=== PATIENT | male | born 1960 | race Caucasian/White ===

== ENCOUNTER 2016-11-27 10:08 | Inpatient (IN) | payer OTHER, MEDICARE ==
[~2016-11-27] VITALS: Ht 185.4 cm; Wt 118.0 kg
[2016-11-27] VITALS (12 sets, daily range): BP systolic 110–145; BP diastolic 82–95; PULSE 86–99; RESP 15–20; TEMP 97.5–98.3; O2SAT 96–98
--- NOTE | 2016-11-27 10:38 | PD ---
HPI Chief Complaint: Medical Clearance Time Seen by Provider: 10:27 Travel History International Travel<30 days: No Contact w/Intl Traveler<30days: No Traveled to known affect area: No History of Present Illness HPI 56-year-old male arrives to the ER at the request of Dr. Solitario, of podiatry, who intends to perform a hardware removal surgery tomorrow from the right foot. The patient is currently receiving vancomycin twice daily via a PICC line. Patient underwent operative repair for fracture about 8 years ago with hardware again placed 2 years ago. Evidently an abscess formed requiring vancomycin. He denies fever lately. He has routine wound shelter. PFSH Social History Tobacco Use: No Allergies-Medications (Allergen,Severity, Reaction): Coded Allergies: No Known Allergies (Unverified , 11/27/16) Reported Meds & Prescriptions Reported Meds & Active Scripts Active Reported Bactrim DS (Sulfamethoxazole-Trimethoprim) 800-160 Mg Tab 1 Tab PO BID Hydrocodone-Acetaminophen 10-325 mg Tab 1 Tab PO Q4H PRN Coq-10 (Coenzyme Q10 (Ubidecarenone)) 400 Mg Cap 200 Mg PO DAILY Multiple Vitamin 1 Tab 1 Tab PO DAILY Vitamin E 100 Unit Tab 400 Units PO DAILY Vitamin D3 (Cholecalciferol) 1,000 Unit Cap 400 Units PO DAILY Vitamin A (Vitamin A Palmitate) 10,000 Unit Capsule 1 Tab PO DAILY Vancomycin Inj (Vancomycin HCl) 1 Gram Inj 1,250 Mg IV Q12HR Iosat (Antidote) (Potassium Iodide (Antidote)) 130 Mg Tab 0.5 Mg PO DAILY Cialis (Tadalafil) 5 Mg Tab 5 Mg PO DAILY Do not exceed 1 dose/day. [place] Thyroid (Thyroid) 30 Mg Tab 30 Mg PO DAILY Levothyroxine (Levothyroxine Sodium) 50 Mcg Tab 50 Mcg PO DAILY Anastrozole 1 Mg Tab 0.5 Mg PO DAILY Furosemide 40 Mg Tab 40 Mg PO BID Lisinopril 5 Mg Tab 5 Mg PO DAILY Carvedilol 3.125 Mg Tab 3.125 Mg PO BID Eliquis (Apixaban) 5 Mg Tab 5 Mg PO BID Review of Systems Except as stated in HPI: all other systems reviewed are Neg General / Constitutional: No: Fever Physical Exam Narrative GENERAL: 56-year-old male pleasant well-nourished well-developed SKIN: Warm and dry. HEAD: Atraumatic. Normocephalic. EYES: Pupils equal and round. No scleral icterus. No injection or drainage. ENT: No nasal bleeding or discharge. Mucous membranes pink and moist. NECK: Trachea midline. No JVD. CARDIOVASCULAR: Regular rate and rhythm. RESPIRATORY: No accessory muscle use. Clear to auscultation. Breath sounds equal bilaterally. GASTROINTESTINAL: Abdomen soft, non-tender, nondistended. Hepatic and splenic margins not palpable. MUSCULOSKELETAL: Extremities without clubbing, cyanosis, or edema. No obvious deformities. Left foot with an open wound approximately 1 cm in widest diameter along the medial margin at the tarsal metatarsal articulation without purulent discharge or adjacent cellulitis. 2+ dorsalis pedis bilaterally. NEUROLOGICAL: Awake and alert. No obvious cranial nerve deficits. Motor grossly within normal limits. Five out of 5 muscle strength in the arms and legs. Normal speech. PSYCHIATRIC: Appropriate mood and affect; insight and judgment normal. Data Data Last Documented VS Vital Signs Date Time Temp Pulse Resp B/P (MAP) Pulse Ox O2 Delivery O2 Flow Rate FiO2 11/27/16 10:09 98.2 95 15 143/92 [phone]) 96 Vital signs reviewed Orders Orders Iv Access Insert/Monitor (11/27/16 10:27) Ecg Monitoring (11/27/16 10:27) Oximetry (11/27/16 10:27) Sodium Chloride 0.9% Flush (Ns Flush) (11/27/16 10:30) Basic Metabolic Panel (Bmp) (11/27/16 10:38) Complete Blood Count With Diff (11/27/16 10:38) Wound Culture And Gram Stain (11/27/16 10:38) Labs Laboratory Tests Test 11/27/16 10:55 White Blood Count 8.3 TH/MM3 Red Blood Count 4.26 MIL/MM3 Hemoglobin 13.7 GM/DL Hematocrit 41.0 % Mean Corpuscular Volume 96.2 FL Mean Corpuscular Hemoglobin 32.1 PG Mean Corpuscular Hemoglobin Concent 33.4 % Red Cell Distribution Width 19.6 % Platelet Count 199 TH/MM3 Mean Platelet Volume 7.6 FL Neutrophils (%) (Auto) 75.0 % Lymphocytes (%) (Auto) 13.6 % Monocytes (%) (Auto) 10.0 % Eosinophils (%) (Auto) 0.7 % Basophils (%) (Auto) 0.7 % Neutrophils # (Auto) 6.2 TH/MM3 Lymphocytes # (Auto) 1.1 TH/MM3 Monocytes # (Auto) 0.8 TH/MM3 Eosinophils # (Auto) 0.1 TH/MM3 Basophils # (Auto) 0.1 TH/MM3 CBC Comment DIFF FINAL Differential Comment Blood Urea Nitrogen 11 MG/DL Creatinine 1.19 MG/DL Random Glucose 75 MG/DL Calcium Level 8.8 MG/DL Sodium Level 133 MEQ/L Potassium Level 3.5 MEQ/L Chloride Level 95 MEQ/L Carbon Dioxide Level 28.2 MEQ/L Anion Gap 10 MEQ/L Estimat Glomerular Filtration Rate 63 ML/MIN MDM Medical Decision Making Medical Screen Exam Complete: Yes Emergency Medical Condition: Yes Differential Diagnosis cellulitis, osteomyelitis, infection of hardware, abscess, sepsis Narrative Course CBC & BMP Diagram 11/27/16 10:55 Calcium Level 8.8 d/w Dr Leo of podiatry who confirms plan for surgery tomorrow d/w Dr Solitario who reports plan for surgery tomorrow at 5:00pm, NPO p breakfast ; pt has hx CHF, cardiology consult recommended; continue BID Vanco; pt is on Eliquis for a-fib Diagnosis Primary Impression: Infected hardware in left lower extremity Qualified Codes: T84.7XXS - Infection and inflammatory reaction due to other internal orthopedic prosthetic devices, implants and grafts, sequela Admitting Information Admitting Physician Requests: Observation Ashok Rangel MD Nov 27, 2016 10:38
[2016-11-27] MEDS ORDERED: ANAS1TAB PO (11:20)
[2016-11-27] MEDS ORDERED: COEN400C PO (11:20)
[2016-11-27] MEDS ORDERED: VITA100T65 PO (11:20)
[2016-11-27] MEDS ORDERED: ARMO30TA PO (11:20)
[2016-11-27] MEDS ORDERED: VITA100036 PO (11:20)
[2016-11-27] MEDS ORDERED: FURO40TA PO (11:20)
[2016-11-27] MEDS ORDERED: VITA1CAP7 PO (11:20)
[2016-11-27] MEDS ORDERED: LISI-519 PO (11:20)
[2016-11-27] MEDS ORDERED: [UNRECOGNIZED DRUG - CODE] PO (11:20)
[2016-11-27] MEDS ORDERED: APIX5TAB PO (11:20)
[2016-11-27] MEDS ORDERED: CARV3.12 PO (11:20)
[2016-11-27] MEDS ORDERED: VANC1000P IV (11:20)
[2016-11-27] MEDS ORDERED: MULTTAB67 PO (11:20)
[2016-11-27] MEDS ORDERED: CIAL5TAB PO (11:20)
[2016-11-27] MEDS ORDERED: LEVO50TA4 PO (11:20)
[2016-11-27] MEDS ORDERED: HYDR-3583 PO (11:21)
[2016-11-27] MEDS ORDERED: BACT800T5 PO (11:21)
[2016-11-27 11:24] LABS: AUTOMATED NEUTROPHIL # 6.2 TH/MM3 (1.8-7.7); BASOPHIL # 0.1 TH/MM3 (0-0.2); BASOPHIL % 0.7 % (0.0-2.0); EOSINOPHIL # 0.1 TH/MM3 (0-0.4); EOSINOPHIL % 0.7 % (0.0-4.0); HEMO FLAGS DIFF FINAL; LYMPH % 13.6 % (9.0-44.0); LYMPHOCYTE # 1.1 TH/MM3 (1.0-4.8); MEAN CELL VOLUME 96.2 FL (80.0-100.0); MEAN CORPUSCULAR HEMOGLOBIN 32.1 PG (27.0-34.0); MEAN CORPUSCULAR HGB CONC 33.4 % (32.0-36.0); PLATELET COUNT 199 TH/MM3 (150-450); RED BLOOD COUNT 4.26 MIL/MM3 (4.50-5.90); RED CELL DISTRIBUTION WIDTH 19.6 % (11.6-17.2); WHITE BLOOD COUNT 8.3 TH/MM3 (4.0-11.0)
[2016-11-27 11:41] LABS: BICARBONATE 28.2 MEQ/L (21.0-32.0); POTASSIUM 3.5 MEQ/L (3.5-5.1)
[2016-11-27] MEDS ORDERED: ONDANSETRON HCL 4 MG/2 ML VIAL IVP PRN (12:30)
[2016-11-27] MEDS ORDERED: LACTULOSE SYRUP 20 GM/30 ML CUP PO PRN (12:30)
[2016-11-27] MEDS ORDERED: BISACODYL 10 MG SUPP RECTAL PRN (12:30)
[2016-11-27] MEDS ORDERED: ACETAMINOPHEN 325 MG TAB PO PRN ×2 (12:30→14:30)
[2016-11-27] MEDS ORDERED: SENNOSIDES 8.6 MG TAB PO PRN (12:30)
--- NOTE | 2016-11-27 13:17 | HHI.HP ---
HPI Service Family Medicine Team A Dr. Gallardo, attending Primary Care Physician [facility] Admission Diagnosis Diagnoses: International Travel<30 Days: No Contact w/Intl Traveler<30days: No History of Present Illness Patient is a 56 year old male with history of systolic HF, EF 20-25 with defibrillator vest, who presents because he was sent by his element setter for surgical removal of right foot hardware. He did not bring any records with him but says he was sent by Dr. Solitario for surgery tomorrow. Patient states his issue with the right foot started after construction accident in 2007. He had no issues with the hardware which he reports to be extensive involving the forefoot, medial foot, and ankle. He is noted to have had osteomyelitis in [place] in May 2014, with hardware removed at that time. After controlling infection, hardware was replaced in October 2014. Repair included bone graft, removal of old hardware, and delayed replacement of new hardware. Patient did have a hospitalization in May 2016: new infection of the foot, lower extremity edema, cardiac issues at that time, diagnosed with new-onset CHF per his report. Now sees Dr. Whittaker through [facility]. Last EF 20-25% 3 months ago. He has seen another doctor for AICD placement, but there is suspicion that infection may be contributing to low EF. Recently (within 1-2 months), he noticed increased pain in the right foot. He noticed at that time redness and swelling, was sent to [facility] and he had debridement by Dr. Solitario. The review included sending one of the screws for culture and infection, per patient was MRSA, was noted. He was diagnosed then with recurrent osteomyelitis and has been on IV vancomycin BID via home health infusions. He notes that he ran out of vancomycin as of this morning. Symptom-montaño, patient states he is at a baseline. He is ambulating without balance issues and only notes some pain with ambulation. He denies any systemic signs of fever. He does endorse lower extremity edema which is mildly increased above his baseline; his edema has been a problem since his hospitalization in May 2016, and he did take his Lasix 40 mg doses morning for this. He denies respiratory symptoms today and states he does not usually have respiratory symptoms. (Trista Martinez MD R2) Review of Systems Constitutional: DENIES: Fever, Weight gain, Weight loss, Chills, Change in appetite Eyes: DENIES: Blurred vision, Diplopia, Eye pain, Photosensitivity Ears, nose, mouth, throat: DENIES: Tinnitus, Hearing loss, Vertigo, Oral lesions, Throat pain, Toothache Respiratory: DENIES: Cough, Hemoptysis, Sputum production, Shortness of breath Cardiovascular: COMPLAINS OF: Lower Extremity Edema, Claudication (moreso with swelling), DENIES: Chest pain, Palpitations, Syncope, Orthopnea Gastrointestinal: DENIES: Abdominal pain, Black stools, Bloody stools, Constipation, Nausea, Vomiting, Difficulty Swallowing Genitourinary: DENIES: Urinary frequency, Urgency, Hematuria, Dysuria, Nocturia Musculoskeletal: COMPLAINS OF: Joint pain (OA, right foot), Stiffness, Back pain (chronic ), Neck pain (chronic), DENIES: Muscle aches Integumentary: DENIES: Pruritus, Rash Hematologic/lymphatic: COMPLAINS OF: Bruising, DENIES: Lymphadenopathy Neurologic: DENIES: Abnormal gait, Headache, Poor Balance Psychiatric: DENIES: Anxiety, Depression (Trista Martinez MD R2) Past Family Social History Past Medical History Atrial fibrillation on Eliquis CHF systolic Right foot osteomyelitis Past Surgical History 2008: Right foot orthopedic surgery with hardware placement 2015: Osteomyelitis--hardware removal and replacement approximate 3 months later September/October 2016: Osteomyelitis, surgical I&D Reported Medications Vancomycin in hospital per IV infusions as outpt (3-4 weeks, BID) Reported Meds & Active Scripts Active Reported Bactrim DS (Sulfamethoxazole-Trimethoprim) 800-160 Mg Tab 1 Tab PO BID Hydrocodone-Acetaminophen 10-325 mg Tab 1 Tab PO Q4H PRN Coq-10 (Coenzyme Q10 (Ubidecarenone)) 400 Mg Cap 200 Mg PO DAILY Multiple Vitamin 1 Tab 1 Tab PO DAILY Vitamin E 100 Unit Tab 400 Units PO DAILY Vitamin D3 (Cholecalciferol) 1,000 Unit Cap 400 Units PO DAILY Vitamin A (Vitamin A Palmitate) 10,000 Unit Capsule 1 Tab PO DAILY Vancomycin Inj (Vancomycin HCl) 1 Gram Inj 1,250 Mg IV Q12HR Iosat (Antidote) (Potassium Iodide (Antidote)) 130 Mg Tab 0.5 Mg PO DAILY Cialis (Tadalafil) 5 Mg Tab 5 Mg PO DAILY Do not exceed 1 dose/day. [place] Thyroid (Thyroid) 30 Mg Tab 30 Mg PO DAILY Levothyroxine (Levothyroxine Sodium) 50 Mcg Tab 50 Mcg PO DAILY Anastrozole 1 Mg Tab 0.5 Mg PO DAILY Furosemide 40 Mg Tab 40 Mg PO BID TAKING ONCE DAILY Lisinopril 5 Mg Tab 5 Mg PO DAILY Carvedilol 3.125 Mg Tab 3.125 Mg PO BID Eliquis (Apixaban) 5 Mg Tab 5 Mg PO BID (Trista Martinez MD R2) Allergies: Coded Allergies: No Known Allergies (Unverified , 11/27/16) Active Ordered Medications Inpatient Medications Acetaminophen (Tylenol) 650 mg Q6H PRN PO fever >101F; Start 11/27/16 at 12:30 Bisacodyl (Dulcolax Supp) 10 mg DAILY PRN RECTAL SEVERE CONSITIPATION; Start 11/27/16 at 12:30 Lactulose (Lactulose Liq) 30 ml DAILY PRN PO SEVERE CONSITIPATION; Start at 12:30 Magnesium Hydroxide (Milk Of Magnesia Liq) 30 ml Q12H PRN PO MILD - MODERATE CONSTIPATION; Start 11/27/16 at 12:30 Ondansetron HCl (Zofran Inj) 4 mg Q6H PRN IVP NAUSEA OR VOMITING; Start at 12:30 Senna/Docusate Sodium (Yoanna-Colace) 1 tab BID PO ; Start 11/27/16 at 21:00 Sennosides (Senokot) 17.2 mg Q12H PRN PO MODERATE - SEVERE CONSTIPATION; Start 11/27/16 at 12:30 Sodium Chloride (NS Flush) 2 ml UNSCH PRN IV FLUSH FLUSH AFTER USING IV ACCESS ; Start 11/27/16 at 10:30 Zolpidem Tartrate (Ambien) 5 mg HS PRN PO INSOMNIA; Start 11/27/16 at 21:00 Family History Father: cancer - bone, dx age 32 PGM: cancer - lung, in age 80s PGF: cancer - skin, age 80s Siblings: healthy Children: healthy Social History Tobacco: quit smoking 8 years, 1PPD x on and off 10 years total Alcohol: occasional Illicit: denies Lives alone Home health for IV infusions per podiatry (Trista Martinez MD R2) Physical Exam Vital Signs Vital Signs Date Time Temp Pulse Resp B/P (MAP) Pulse Ox O2 Delivery O2 Flow Rate FiO2 10/1/17 10:09 98.2 95 15 143/92 (109) 96 Physical Exam GENERAL: Patient is a well-nourished, well-developed male sitting in bed in no apparent distress. SKIN: Warm and dry. No rashes or ecchymoses noted. The right medial ankle is noted to have an open wound approximately 0.5 cm covered with a clear pressure dressing. Minimal surrounding erythema, possibly chronic skin changes. Not warm to touch. HEAD: Atraumatic. Normocephalic. EYES: Pupils equal and round. EOMI. No scleral icterus or conjunctival injection. ENT: No nasal bleeding or discharge. Mucous membranes pink and moist. Uvula is benign without exudates along tonsils. Bilateral tympanic membranes normal appearance. NECK: Trachea midline. No JVD. No cervical lymphadenopathy noted CARDIOVASCULAR: Regular rate and rhythm sounds regular. Patient is wearing defibrillator vest. Auscultation does not reveal any murmurs. Lower extremities have 2+ edema to level just below the knees bilaterally. He has 2+ pulses in upper and lower extremities bilaterally. RESPIRATORY: No accessory muscle use. Clear to auscultation bilaterally without wheezes or rhonchi. Breath sounds equal bilaterally. GASTROINTESTINAL: Abdomen soft, non-tender, nondistended. Hepatic and splenic margins not palpable. Bowel sounds are normal in all 4 quadrants. MUSCULOSKELETAL: Swelling of the lower extremity bilaterally. There is loss of foot architecture due to swelling, right greater than left. Patient has limited range of motion of the ankles and full range of motion of the toes bilaterally. No other abnormalities noted. NEUROLOGICAL: Awake and alert. No obvious cranial nerve deficits. Motor grossly within normal limits. 5/5 strength in the arms and legs. Normal speech. PSYCHIATRIC: Appropriate mood and affect; insight and judgment normal. Laboratory Laboratory Tests Test 11/27/16 10:55 White Blood Count 8.3 Red Blood Count 4.26 Hemoglobin 13.7 Hematocrit 41.0 Mean Corpuscular Volume 96.2 Mean Corpuscular Hemoglobin 32.1 Mean Corpuscular Hemoglobin Concent 33.4 Red Cell Distribution Width 19.6 Platelet Count 199 Mean Platelet Volume 7.6 Neutrophils (%) (Auto) 75.0 Lymphocytes (%) (Auto) 13.6 Monocytes (%) (Auto) 10.0 Eosinophils (%) (Auto) 0.7 Basophils (%) (Auto) 0.7 Neutrophils # (Auto) 6.2 Lymphocytes # (Auto) 1.1 Monocytes # (Auto) 0.8 Eosinophils # (Auto) 0.1 Basophils # (Auto) 0.1 CBC Comment DIFF FINAL Differential Comment Blood Urea Nitrogen 11 Creatinine 1.19 Random Glucose 75 Calcium Level 8.8 Sodium Level 133 Potassium Level 3.5 Chloride Level 95 Carbon Dioxide Level 28.2 Anion Gap 10 Estimat Glomerular Filtration Rate 63 Date/Time Source Procedure Growth Status 11/27/16 10:55 Wound Foot Gram Stain Pending Received 11/27/16 10:55 Wound Foot Wound Culture Pending Received (Trista Martinez MD R2) Result Diagram: 11/27/16 1055 11/27/16 1055 Caprini VTE Risk Assessment Caprini VTE Risk Assessment: Mod/High Risk (score >= 2) Caprini Risk Assessment Model Point Value = 1 Point Value = 2 Point Value = 3 Point Value = 5 Age 41-60 Minor surgery BMI > 25 kg/m2 Swollen legs Varicose veins or History of unexplained or recurrent spontaneous Oral contraceptives or hormone replacement Sepsis (< 1 month) Serious lung disease, including pneumonia (< 1 month) Abnormal pulmonary function Acute myocardial infarction Congestive heart failure (< 1 month) History of inflammatory bowel disease Medical patient at bed rest Age 61-74 Arthroscopic surgery Major open surgery (> 45 min) Laparoscopic surgery (> 45 min) Malignancy Confined to bed (> 72 hours) Immobilizing plaster cast Central venous access Age >= 75 History of VTE Family history of VTE Factor V Leiden Prothrombin 20504H Lupus anticoagulant Anticardiolipin antibodies Elevated serum homocysteine Heparin-induced thrombocytopenia Other congenital or acquired thrombophilia Stroke (< 1 month) Elective arthroplasty Hip, pelvis, or leg fracture Acute spinal cord injury (< 1 month) Prophylaxis Regimen Total Risk Factor Score Risk Level Prophylaxis Regimen 0-1 Low Early ambulation 2 Moderate Order ONE of the following: *Sequential Compression Device (SCD) *Heparin 5000 units SQ BID 3-4 Higher Order ONE of the following medications: *Heparin 5000 units SQ TID *Enoxaparin/Lovenox 40 mg SQ daily (WT < 150 kg, CrCl > 30 mL/min) *Enoxaparin/Lovenox 30 mg SQ daily (WT < 150 kg, CrCl > 10-29 mL/min) *Enoxaparin/Lovenox 30 mg SQ BID (WT < 150 kg, CrCl > 30 mL/min) AND/OR *Sequential Compression Device (SCD) 5 or more Highest Order ONE of the following medications: *Heparin 5000 units SQ TID (Preferred with Epidurals) *Enoxaparin/Lovenox 40 mg SQ daily (WT < 150 kg, CrCl > 30 mL/min) *Enoxaparin/Lovenox 30 mg SQ daily (WT < 150 kg, CrCl > 10-29 mL/min) *Enoxaparin/Lovenox 30 mg SQ BID (WT < 150 kg, CrCl > 30 mL/min) AND *Sequential Compression Device (SCD) (Trista Martinez MD R2) Assessment and Plan Assessment and Plan 56-year-old male with a significant cardiac history including thyroid dysfunction, recurrent osteomyelitis of right foot, systolic heart failure with reduced EF 20-25% per report, has defibrillator vest on. He is being admitted for hardware removal of the right foot. He is admitted per request of Dr. Solitario for surgery at around 5 PM tomorrow. I spoke with Dr. Solitario by phone today and she requests that patient not eat anything after 8 AM. She also requests formal cardiology consult as due to her history with the patient she is aware that he is a poor candidate for general anesthesia and will likely need popliteal block which she will coordinate with anesthesia tomorrow. * Osteomyelitis/Infected Hardware Right Foot: Status post vancomycin x 6 weeks via home health nursing. Last dose of vancomycin was morning of 11/27. * Patient does not meet SIRS or sepsis criteria based on intake labs and vital signs * Per discussion with Dr. Solitario, the plan was to get the hardware removed 6 weeks ago prior to hospital discharge. He was discharged prior to setting up this procedure. At that time it was determined that he could proceed with IV vancomycin at home until scheduled hardware removal in the future. * Dr. Solitario asks that we hold Vancomycin unless there is acute indication and she is planning to get a culture in the OR tomorrow and he is already been on approximately 6 weeks of antibodies. * Request for records from podiatrists, hospitalizations pending * CHF with reduced EF: Per patient was recently EF is 25%. He states it was as low as 10% back in May 2016. Cardiology consulted for medical clearance and recommendations regarding anesthesia. Caution with IV fluids given reportedly low EF. Outpatient telecommunications facility examiner is Dr. Betts (sp) * EKG pending, telemetry, requesting patient be placed on C[facility] floor for close monitoring * Patient is on anastrozole, unclear why patient will be on this medication, he states it is "for his cholesterol", will hold at this time. Repeat medicine reconciliation is pending per pharmacy teacher in ED * Request for records from telecommunications facility examiner pending * Continue Lasix, patient states he is only taking 40 mg once daily at this time, will continue prescribed dose which is 40 mg twice a day * Atrial fibrillation: Rate normal. On Plavix, will hold given procedure tomorrow, place on telemetry. EKG not performed in ED, will order now. * Thyroid dysfunction: Unclear history from patient. Patient appears to be on levothyroxine, [place] Thyroid, and? Iodine though he is unsure. Will obtain thyroid function studies and hold his medications now. If TSH within normal limits we'll restart levothyroxine. If patient has any acute symptoms suggesting thyroid dysfunction is active, will reassess. PRN Medications * Vasotec 1.25mg for BP >180/110 * Stool softeners and other constipation medications order per protocol Fluids/Electrolytes/Nutrition/Prophylaxis * Fluids: tolerating PO, will consider low rate of NS after NPO tomorrow * Electrolytes: monitor and replete as needed * Nutrition: Heart healthy diet for now. NPO after 8am. * DVT Prophylaxis: Early ambulation. On Plavix at home, will hold. SCDs bilaterally while immobile. * GI Prophylaxis: None indicated at this time Disposition: * Pending surgical clearance from podiatry after procedure scheduled for 11/28 * Patient will need to follow up with his telecommunications facility examiner and element setter closely after discharge Code Status FULL CODE Discussed Condition With He will be discussed with Dr. Gallardo. He was seen and discussed with Dr. Kumar. (Trista Martinez MD R2) Attending Attestation The patient has been seen and examined. The chart and all resident notes have been reviewed. I agree that inpatient care is appropriate and that a two midnight stay is expected for the reasons documented in the resident history and physical. I have discussed this with the resident and certify the resident s order for inpatient admission. (Vijaya Gallardo MD) Problem List: (1) Infected hardware in right lower extremity ICD Codes: T84.7XXA - Infection and inflammatory reaction due to other internal orthopedic prosthetic devices, implants and grafts, initial encounter (2) Thyroid disorder ICD Codes: E07.9 - Disorder of thyroid, unspecified (3) Heart failure, systolic, chronic, etiology unknown ICD Codes: I50.22 - Chronic systolic (congestive) heart failure Status: Chronic (4) CHF (congestive heart failure), NYHA class II ICD Codes: I50.9 - Heart failure, unspecified (5) Atrial fibrillation, currently in sinus rhythm ICD Codes: Z86.79 - Personal history of other diseases of the circulatory system (Trista Martinez MD R2) Physician Certification 2 Midnight Certification Type: Admission for Inpatient Services Order for Inpatient Services The services are ordered in accordance with Medicare regulations or non- Medicare payer requirements, as applicable. In the case of services not specified as inpatient-only, they are appropriately provided as inpatient services in accordance with the 2-midnight benchmark. Estimated LOS (days): 3 days is the estimated time the patient will need to remain in the hospital, assuming treatment plan goals are met and no additional complications. Post-Hospital Plan: Not yet determined (Trista Martinez MD R2) Trista Martinez MD R2 Nov 27, 2016 13:17 Vijaya Gallardo MD Nov 28, 2016 21:53
[2016-11-27] MEDS ORDERED: NALOXONE HCL 0.4 MG/ML AMP IV PUSH PRN (14:30)
[2016-11-27] MEDS ORDERED: ACETAMINOPHEN/HYDROcodone 325 MG/5 MG TAB PO PRN (14:30)
[2016-11-27 14:49] LABS: FREE T4 1.45 NG/DL (0.76-1.46)
[2016-11-27] MEDS ORDERED: FUROSEMIDE 40 MG/4 ML VIAL IV PUSH ONE (15:00)
[2016-11-27] MEDS: ACETAMINOPHEN/HYDROcodone 325 MG/10 MG TAB PO PRN ×2 (15:28→20:00)
--- NOTE | 2016-11-27 17:57 | MB ---
cc: RENALDO HOWARD MD DATE OF CONSULTATION: 11/27/2016. REASON FOR CONSULTATION: Preoperative evaluation with known cardiomyopathy. HISTORY OF PRESENT ILLNESS: The patient is a very pleasant 56-year-old gentleman with a recently diagnosed nonischemic cardiomyopathy. The patient has been fully worked up at [facility] and the patient was and is able to give me detailed results of all of his last testing, which included a cardiac catheterization showing normal coronaries. He says that his ejection fraction while initially in the 10% to 15% range has improved to about 20% to 25%. The patient was sent here by his hull and deck remover for surgical removal of his foot hardware. The patient has been well compensated but has noted slight pedal edema over the last couple of days and had been considering taking an extra Lasix, though he had not yet done so. Otherwise he is asymptomatic and denying any chest pain, shortness of breath, lightheadedness or dizziness. PAST MEDICAL HISTORY: 1. Cardiac history as above. 2. DVT on Eliquis. 3. Possible paroxysmal atrial fibrillation on Eliquis (the patient is not completely sure about this diagnosis). CURRENT MEDICATIONS: 1. Lisinopril 5 milligrams daily. 2. Coreg 3.125 milligrams twice a day. 3. Lasix 40 milligrams p.o. twice a day. ALLERGIES: NO KNOWN DRUG ALLERGIES. PHYSICAL EXAMINATION: VITAL SIGNS: Afebrile, pulse 95, respiratory rate 15, blood pressure 143/92, satting 96% on room air. GENERAL: A very pleasant well-appearing gentleman in no distress. NECK: No jugular venous distention. LUNGS: Clear to auscultation bilaterally. CARDIOVASCULAR: Regular rate and rhythm. No murmurs appreciated. ABDOMEN: Benign. EXTREMITIES: Trace pedal edema bilaterally. LABORATORY DATA: White count is 8.3, hematocrit 41.0, platelet count 199,000. Sodium 133, potassium 3.5, chloride 95, bicarbonate 28.2, BUN 11, creatinine 1.19, glucose 75. EKGS: EKG shows sinus rhythm with left axis deviation and nonspecific interventricular conduction delay but no acute S-T or T wave changes. IMPRESSION: 1. Preoperative evaluation. The patient with a low ejection fraction will be at high risk for any procedure, though he has been fully worked up and has essentially compensated at this point in time. The patient understands this risk and agrees to proceed with surgery. 2. I will given one shot of IV Lasix instead of his oral dose tonight. 3. I would like all of his [facility] records put into the chart in case we need to research these at some later point, but otherwise, he is on a good medical plan for chronic systolic congestive heart failure and a LifeVest is in place. Further recommendations based on the clinical course. Thank you again for the opportunity to participate this patient's care. MD LORE Amin/LINDA /2:44 PM /5:46 PM
[2016-11-27] MEDS ORDERED: ZOLPIDEM TARTRATE 5 MG TAB PO PRN (21:00)
[2016-11-27] MEDS ORDERED: FUROSEMIDE 40 MG TAB PO SCH (21:00)
[2016-11-27] MEDS ORDERED: VANCOMYCIN HCL 1000 MG VIAL IV SCH (21:00)
[2016-11-27] MEDS ORDERED: VANCOMYCIN INJ 1,250 MG in SODIUM CHLOR 0.9% 250 ML INJ 250 ML IV SCH (21:00)
[2016-11-27] MEDS: CARVEDILOL 3.125 MG TAB PO SCH (21:29)
[2016-11-27] MEDS: DOCUSATE SODIUM 50 MG/SENNA 8.6 MG TAB PO SCH (21:29)
[2016-11-27] MEDS: SODIUM CHLORIDE 0.9% FLUSH 10 ML FLUSH IV FLUSH PRN (21:29)
[2016-11-28] VITALS (23 sets, daily range): BP systolic 110–135; BP diastolic 79–96; PULSE 75–95; RESP 16–18; TEMP 97.9–98.5; O2SAT 93–98
[2016-11-28] MEDS: ACETAMINOPHEN/HYDROcodone 325 MG/10 MG TAB PO PRN ×5 (00:09→20:22)
[2016-11-28 04:27] LABS: AUTOMATED NEUTROPHIL # 4.3 TH/MM3 (1.8-7.7); BASOPHIL % 0.6 % (0.0-2.0); EOSINOPHIL # 0.1 TH/MM3 (0-0.4); EOSINOPHIL % 1.1 % (0.0-4.0); HEMATOCRIT 42.3 % (39.0-51.0); HEMO FLAGS DIFF FINAL; LYMPH % 22.7 % (9.0-44.0); LYMPHOCYTE # 1.6 TH/MM3 (1.0-4.8); MEAN CELL VOLUME 96.3 FL (80.0-100.0); MEAN CORPUSCULAR HEMOGLOBIN 31.8 PG (27.0-34.0); MONO % 12.3 % (0.0-8.0); NEUT % 63.3 % (16.0-70.0); PLATELET COUNT 199 TH/MM3 (150-450); RED BLOOD COUNT 4.39 MIL/MM3 (4.50-5.90); RED CELL DISTRIBUTION WIDTH 19.8 % (11.6-17.2); WHITE BLOOD COUNT 6.9 TH/MM3 (4.0-11.0)
[2016-11-28 04:47] LABS: INTERNATIONAL NORMALIZED RATIO 1.2 RATIO; PROTHROMBIN TIME - PATIENT 13.9 SEC (9.8-11.6)
[2016-11-28 04:54] LABS: ALT (GPT) 47 U/L (12-78); ANION GAP 7 MEQ/L (5-15); AST (GOT) 37 U/L (15-37); BICARBONATE 29.9 MEQ/L (21.0-32.0); BLOOD UREA NITROGEN 14 MG/DL (7-18); CHLORIDE 97 MEQ/L (98-107); GLOMERULAR FILTRATION RATE 60 ML/MIN (>89); POTASSIUM 3.6 MEQ/L (3.5-5.1); SODIUM (NA) 134 MEQ/L (136-145)
[2016-11-28 04:57] LABS: ALKALINE PHOSPHATASE 69 U/L (45-117); TOTAL BILIRUBIN ADULT 1.3 MG/DL (0.2-1.0)
[2016-11-28] MEDS: FUROSEMIDE 40 MG TAB PO SCH ×2 (09:00→20:22)
--- NOTE | 2016-11-28 09:32 | PD.CARD.PN ---
Subjective Subjective Remarks Pt feels notably better after his IV lasix, no complaints currently. Objective Medications Administered Medications Medications (Trade) Dose Ordered Sig/Kahlil Route PRN Reason Start Time Stop Time Status Last Admin Dose Admin Sodium Chloride (NS Flush) 2 ml UNSCH PRN IV FLUSH FLUSH AFTER USING IV ACCESS 11/27/16 10:30 11/27/16 21:29 Senna/Docusate Sodium (Yoanna-Colace) 1 tab BID PO 11/27/16 21:00 11/27/16 21:29 Carvedilol (Coreg) 3.125 mg BID PO 11/27/16 21:00 11/27/16 21:29 Acetaminophen/ Hydrocodone Bitart ([place] 10-325 Mg) 1 tab Q4H PRN PO PAIN SCALE 6 TO 10 11/27/16 14:30 11/28/16 03:58 Vital Signs / I&O Vital Signs Date Time Temp Pulse Resp B/P (MAP) Pulse Ox O2 Delivery O2 Flow Rate FiO2 11/28/16 09:24 98.5 94 17 135/96 (109) 93 11/28/16 06:00 76 11/28/16 05:00 78 11/28/16 04:11 88 16 119/90 (100) 95 11/28/16 04:00 90 11/28/16 03:00 80 11/28/16 02:00 78 11/28/16 01:00 82 11/28/16 00:10 88 16 110/82 (91) 97 11/28/16 00:00 82 11/27/16 23:00 99 11/27/16 22:00 90 11/27/16 21:00 92 11/27/16 20:00 88 11/27/16 19:50 97.5 92 16 110/82 (91) 97 11/27/16 19:00 99 11/27/16 18:04 91 11/27/16 17:09 98.3 94 18 133/90 (104) 98 11/27/16 17:00 86 11/27/16 16:50 11/27/16 16:50 94 11/27/16 15:56 89 20 145/95 (112) 98 Room Air 11/27/16 10:09 98.2 95 15 143/92 (109) 96 I/O 10/1/17 11/27/16 11/27/16 11/28/16 11/28/16 11/28/16 07:00 15:00 23:00 07:00 15:00 23:00 Intake Total 240 ml 720 ml Balance 240 ml 720 ml Intake Oral 240 ml 720 ml # Voids 2 4 # Bowel Movements 0 Physical Exam GENERAL: This is a well-nourished, well-developed patient, in no apparent distress. CARDIOVASCULAR: Regular rate and rhythm without murmurs, gallops, or rubs. RESPIRATORY: Clear to auscultation. Breath sounds equal bilaterally. No wheezes , rales, or rhonchi. GASTROINTESTINAL: Abdomen soft, non-tender, nondistended. Normal active bowel sounds MUSCULOSKELETAL: Extremities without clubbing, cyanosis, or edema. NEURO: Alert & Oriented x4 to person, place, time, situation. Moves all ext x4 Laboratory Laboratory Tests Test 11/27/16 10:55 11/28/16 04:10 White Blood Count 8.3 TH/MM3 6.9 TH/MM3 Red Blood Count 4.26 MIL/MM3 4.39 MIL/MM3 Hemoglobin 13.7 GM/DL 13.9 GM/DL Hematocrit 41.0 % 42.3 % Mean Corpuscular Volume 96.2 FL 96.3 FL Mean Corpuscular Hemoglobin 32.1 PG 31.8 PG Mean Corpuscular Hemoglobin Concent 33.4 % 33.0 % Red Cell Distribution Width 19.6 % 19.8 % Platelet Count 199 TH/MM3 199 TH/MM3 Mean Platelet Volume 7.6 FL 7.1 FL Neutrophils (%) (Auto) 75.0 % 63.3 % Lymphocytes (%) (Auto) 13.6 % 22.7 % Monocytes (%) (Auto) 10.0 % 12.3 % Eosinophils (%) (Auto) 0.7 % 1.1 % Basophils (%) (Auto) 0.7 % 0.6 % Neutrophils # (Auto) 6.2 TH/MM3 4.3 TH/MM3 Lymphocytes # (Auto) 1.1 TH/MM3 1.6 TH/MM3 Monocytes # (Auto) 0.8 TH/MM3 0.8 TH/MM3 Eosinophils # (Auto) 0.1 TH/MM3 0.1 TH/MM3 Basophils # (Auto) 0.1 TH/MM3 0.0 TH/MM3 CBC Comment DIFF FINAL DIFF FINAL Differential Comment Blood Urea Nitrogen 11 MG/DL 14 MG/DL Creatinine 1.19 MG/DL 1.25 MG/DL Random Glucose 75 MG/DL 70 MG/DL Calcium Level 8.8 MG/DL 8.4 MG/DL Sodium Level 133 MEQ/L 134 MEQ/L Potassium Level 3.5 MEQ/L 3.6 MEQ/L Chloride Level 95 MEQ/L 97 MEQ/L Carbon Dioxide Level 28.2 MEQ/L 29.9 MEQ/L Anion Gap 10 MEQ/L 7 MEQ/L Estimat Glomerular Filtration Rate 63 ML/MIN 60 ML/MIN Free Thyroxine 1.45 NG/DL Total Triiodothyronine 78 NG/DL Thyroid Stimulating Hormone 3rd Gen 2.730 uIU/ML Prothrombin Time 13.9 SEC Prothromb Time International Ratio 1.2 RATIO Total Protein 6.4 GM/DL Albumin 3.0 GM/DL Alkaline Phosphatase 69 U/L Aspartate Amino Transf (AST/SGOT) 37 U/L Alanine Aminotransferase (ALT/SGPT) 47 U/L Total Bilirubin 1.3 MG/DL Assessment and Plan Problem List: (1) Cardiomyopathy ICD Codes: I42.9 - Cardiomyopathy, unspecified Plan: continue silviano/BB; asked him to discuss changing silviano to entresto as outpt w / his primary sales administrator. (2) Atrial fibrillation, currently in sinus rhythm ICD Codes: Z86.79 - Personal history of other diseases of the circulatory system Plan: holding eliquis in anticipation of surgery (3) Heart failure, systolic, chronic, etiology unknown ICD Codes: I50.22 - Chronic systolic (congestive) heart failure Status: Chronic Plan: now well compensated, continue oral meds Assessment and Plan will be available as needed from here, please call with questions. Major Amor MD Nov 28, 2016 09:32
[2016-11-28] MEDS: LISINOPRIL 5 MG TAB PO SCH (09:41)
[2016-11-28] MEDS: DOCUSATE SODIUM 50 MG/SENNA 8.6 MG TAB PO SCH ×2 (09:41→20:22)
[2016-11-28] MEDS: CARVEDILOL 3.125 MG TAB PO SCH ×2 (09:41→20:22)
[2016-11-28] MEDS ORDERED: PROPOFOL 200 MG/20 ML AMP IV ONE (12:28)
[2016-11-28] MEDS ORDERED: LORazepam 2 MG/ML VIAL IV PUSH PRN (15:15)
[2016-11-28] MEDS ORDERED: EPINEPHrine HCL (1:10,000) 1 MG/10 ML SYRINGE ONE (16:18)
[2016-11-28] MEDS ORDERED: LIDOCAINE HCL 2% 100 MG/5 ML SYRINGE ONE (16:18)
[2016-11-28] MEDS ORDERED: ATROPINE SULFATE 1 MG/10 ML SYRINGE ONE (16:18)
[2016-11-28] MEDS ORDERED: LIDOCAINE HCL 2% 20 ML VIAL ONE (16:53)
[2016-11-28] MEDS ORDERED: BUPIVACAINE HCL PF 0.5% 30 ML VIAL ONE (16:53)
--- NOTE | 2016-11-28 16:53 | HHI.FPPN ---
Subjective Subjective Patient seen and examined with the resident team this am. Case reviewed and discussed Please refer to resident H&P for further details regarding HPI, ROS, PMH, SurgHx FH and SocHx In summary, patient is a 56yoM with a history of recurrent OM with foot hardware , history of severely reduced systolic function who was sent to the ED due to + MRSA culture from his foot Patient has been following as an outpatient for treatment of infected hardware, has been on IV Vanc via C. He reports increasing pain in his foot over the coarse of the last week which prompted him to come in for care. He went to [facility] and a culture was taken of his foot resulting as MRSA and his dental laboratory technology teacher has asked him to come in for evaluation. Surgical intervention pending. [facility] Objective Objective Last Impressions Foot X-Ray 11/28/16 0000 Signed Impressions: Service Date/Time: Monday, November 28, 2016 18:39 - CONCLUSION: Chronic change of the hind and midfoot. There is a rounded metallic density seen over the lateral midfoot. Jose Bolivar MD Laboratory Tests - Abnormals Test 11/28/16 04:10 Red Blood Count 4.39 MIL/MM3 Red Cell Distribution Width 19.8 % Monocytes (%) (Auto) 12.3 % Prothrombin Time 13.9 SEC Random Glucose 70 MG/DL Albumin 3.0 GM/DL Calcium Level 8.4 MG/DL Total Bilirubin 1.3 MG/DL Sodium Level 134 MEQ/L Chloride Level 97 MEQ/L Estimat Glomerular Filtration Rate 60 ML/MIN Vital Signs 11/27/16 11/27/16 11/27/16 11/27/16 17:00 17:09 18:04 19:00 Temp 98.3 Pulse 86 94 91 99 Resp 18 B/P (MAP) 133/90 (104) Pulse Ox 98 11/27/16 11/27/16 11/27/16 11/27/16 19:50 20:00 21:00 22:00 Temp 97.5 Pulse 92 88 92 90 Resp 16 B/P (MAP) 110/82 (91) Pulse Ox 97 11/27/16 11/28/16 11/28/16 11/28/16 23:00 00:00 00:10 01:00 Pulse 99 82 88 82 Resp 16 B/P (MAP) 110/82 (91) Pulse Ox 97 11/28/16 11/28/16 11/28/16 11/28/16 02:00 03:00 04:00 04:11 Pulse 78 80 90 88 Resp 16 B/P (MAP) 119/90 (100) Pulse Ox 95 11/28/16 11/28/16 11/28/16 11/28/16 05:00 06:00 07:00 08:00 Pulse 78 76 92 80 11/28/16 11/28/16 11/28/16 11/28/16 09:24 10:00 11:00 11:49 Temp 98.5 98.3 Pulse 94 87 95 87 Resp 17 18 B/P (MAP) 135/96 (109) 121/91 (101) Pulse Ox 93 93 11/28/16 11/28/16 11/28/16 11/28/16 12:00 13:00 14:00 15:00 Temp 97.9 Pulse 94 84 88 85 Resp 18 B/P (MAP) 116/79 (91) Pulse Ox 96 Physical exam GENERAL: wdwn male, sitting up in bed. SKIN: Warm and dry. No rashes. Erythema over R medial foot with visible hardware. Minimal drainage. HEAD: Normocephalic. AT EYES: No scleral icterus. No injection or drainage. ENT: OP clear. MMM NECK: Supple, trachea midline. No JVD or lymphadenopathy. CARDIOVASCULAR: Regular rate and rhythm without murmurs, gallops, or rubs. Life Vest on. RESPIRATORY: Breath sounds equal bilaterally. No accessory muscle use. GASTROINTESTINAL: Abdomen soft, non-tender, nondistended. Normal active BS. No rebound. MUSCULOSKELETAL: No cyanosis, there is edema of R foot. No calf tenderness. BACK: Nontender without obvious deformity. No CVA tenderness. Assessment Assessment 56yoM admitted with: Infected foot hardware Hx OM PICC line Severely reduced systolic heart function Life Vest Afib on Eliquis HTN PLAN PLAN Podiatry consult for hardware removal and bone biopsy Intraoperative cultures Pain control Blood cultures PT Cardiology consulted for pre-op eval Resume home meds as appropriate Pending culture results, ID consultation for recommendations Patient is considering getting ICD placed, but was counseled that this should not be placed until recurrent infections are resolved He has cervical spine hardware and was counseled regarding risk of infection of this hardware as well. Vijaya Gallardo MD Nov 28, 2016 16:53
[2016-11-28] MEDS ORDERED: ACETAMINOPHEN 1000 MG/100 ML 100 ML IV ONE (16:54)
[2016-11-28] MEDS ORDERED: KETAMINE HCL 500 MG/5 ML VIAL ONE (16:54)
--- NOTE | 2016-11-28 16:54 | PD.CONS ---
History of Present Illness Service Podiatry Consult Requested By Reason for Consult R foot osteomyelitis, infected hardware Primary Care Physician Unknown Diagnoses: History of Present Illness Patient has had 4 revisions of his R foot surgery, most recently a few years ago. He developed an abscess medially where it was cultured and found to be MRSA with exposed hardware in the area. He was placed on 6 weeks IV vancomycin at [facility] and has been following with ID outpatient in [place]. Intraoperative bone biopsy also had confirmed osteomyelitis of 1st metatarsal. He was admitted for IV antibiotics and to have hardware removed and bone biopsies to guide further treatment. Past Family Social History Allergies: Coded Allergies: No Known Allergies (Unverified , 11/27/16) Past Medical History Atrial fibrillation on Eliquis CHF systolic Right foot osteomyelitis Past Surgical History 2007: Right foot orthopedic surgery with hardware placement 2014: Osteomyelitis--hardware removal and replacement approximate 3 months later September/October 2016: Osteomyelitis, surgical I&D Lives alone Home health for IV infusions per podiatry Reported Medications Bactrim DS (Sulfamethoxazole-Trimethoprim) 800-160 Mg Tab 1 Tab PO BID Hydrocodone-Acetaminophen 10-325 mg Tab 1 Tab PO Q4H PRN Coq-10 (Coenzyme Q10 (Ubidecarenone)) 400 Mg Cap 200 Mg PO DAILY Multiple Vitamin 1 Tab 1 Tab PO DAILY Vitamin E 100 Unit Tab 400 Units PO DAILY Vitamin D3 (Cholecalciferol) 1,000 Unit Cap 400 Units PO DAILY Vitamin A (Vitamin A Palmitate) 10,000 Unit Capsule 1 Tab PO DAILY Vancomycin Inj (Vancomycin HCl) 1 Gram Inj 1,250 Mg IV Q12HR Iosat (Antidote) (Potassium Iodide (Antidote)) 130 Mg Tab 0.5 Mg PO DAILY Cialis (Tadalafil) 5 Mg Tab 5 Mg PO DAILY Do not exceed 1 dose/day. [place] Thyroid (Thyroid) 30 Mg Tab 30 Mg PO DAILY Levothyroxine (Levothyroxine Sodium) 50 Mcg Tab 50 Mcg PO DAILY Anastrozole 1 Mg Tab 0.5 Mg PO DAILY Furosemide 40 Mg Tab 40 Mg PO BID TAKING ONCE DAILY Lisinopril 5 Mg Tab 5 Mg PO DAILY Carvedilol 3.125 Mg Tab 3.125 Mg PO BID Eliquis (Apixaban) 5 Mg Tab 5 Mg PO BID Active Ordered Medications Current Medications Medications (Trade) Dose Ordered Sig/Kahlil Route Start Time Stop Time Status Last Admin (NS Flush) 2 ml UNSCH PRN IV FLUSH 11/27/16 10:30 11/27/16 21:29 (Zofran Inj) 4 mg Q6H PRN IVP 11/27/16 12:30 (Ambien) 5 mg HS PRN PO 11/27/16 21:00 (Tylenol) 650 mg Q6H PRN PO 11/27/16 12:30 (Yoanna-Colace) 1 tab BID PO 11/27/16 21:00 11/28/16 09:41 (Milk Of Magnesia Liq) 30 ml Q12H PRN PO 11/27/16 12:30 (Senokot) 17.2 mg Q12H PRN PO 11/27/16 12:30 (Dulcolax Supp) 10 mg DAILY PRN RECTAL 11/27/16 12:30 (Lactulose Liq) 30 ml DAILY PRN PO 11/27/16 12:30 (Coreg) 3.125 mg BID PO 11/27/16 21:00 11/28/16 09:41 (Prinivil) 5 mg DAILY PO 11/28/16 09:00 11/28/16 09:41 (Tylenol) 650 mg Q6H PRN PO 11/27/16 14:30 ([place] 5-325 Mg) 1 tab Q4H PRN PO 11/27/16 14:30 ([place] 10-325 Mg) 1 tab Q4H PRN PO 11/27/16 14:30 11/28/16 15:06 (Morphine Inj) 2 mg Q3H PRN IV PUSH 11/27/16 14:30 (Narcan Inj) 0.4 mg UNSCH PRN IV PUSH 11/27/16 14:30 (Lasix) 40 mg BID PO 11/28/16 09:00 11/28/16 09:00 (Ativan Inj) 0.5 mg UNSCH X1 PRN IV PUSH 11/28/16 15:15 11/28/16 23:59 11/28/16 15:24 Family History Father: cancer - bone, dx age 32 PGM: cancer - lung, in age 80s PGF: cancer - skin, age 80s Siblings: healthy Children: healthy Social History Tobacco: quit smoking 8 years, 1PPD x on and off 10 years total Alcohol: occasional Illicit: denies Physical Exam Vital Signs Vital Signs Date Time Temp Pulse Resp B/P (MAP) Pulse Ox O2 Delivery O2 Flow Rate FiO2 11/28/16 15:00 97.9 85 18 116/79 (91) 96 11/28/16 14:00 88 11/28/16 13:00 84 11/28/16 12:00 94 11/28/16 11:49 98.3 87 18 121/91 (101) 93 11/28/16 11:00 95 11/28/16 10:00 87 11/28/16 09:24 98.5 94 17 135/96 (109) 93 11/28/16 08:00 80 11/28/16 07:00 92 11/28/16 06:00 76 11/28/16 05:00 78 11/28/16 04:11 88 16 119/90 (100) 95 11/28/16 04:00 90 11/28/16 03:00 80 11/28/16 02:00 78 11/28/16 01:00 82 11/28/16 00:10 88 16 110/82 (91) 97 11/28/16 00:00 82 11/27/16 23:00 99 11/27/16 22:00 90 11/27/16 21:00 92 11/27/16 20:00 88 11/27/16 19:50 97.5 92 16 110/82 (91) 97 11/27/16 19:00 99 11/27/16 18:04 91 11/27/16 17:09 98.3 94 18 133/90 (104) 98 11/27/16 17:00 86 11/27/16 16:50 11/27/16 16:50 94 Physical Exam R foot neurovascularly intact. Medial ulceration to base of 1st metatarsal area from previous area of abscess. No active purulence. Hardware exposed there. Painful Laboratory Laboratory Tests Test 11/28/16 04:10 White Blood Count 6.9 Red Blood Count 4.39 Hemoglobin 13.9 Hematocrit 42.3 Mean Corpuscular Volume 96.3 Mean Corpuscular Hemoglobin 31.8 Mean Corpuscular Hemoglobin Concent 33.0 Red Cell Distribution Width 19.8 Platelet Count 199 Mean Platelet Volume 7.1 Neutrophils (%) (Auto) 63.3 Lymphocytes (%) (Auto) 22.7 Monocytes (%) (Auto) 12.3 Eosinophils (%) (Auto) 1.1 Basophils (%) (Auto) 0.6 Neutrophils # (Auto) 4.3 Lymphocytes # (Auto) 1.6 Monocytes # (Auto) 0.8 Eosinophils # (Auto) 0.1 Basophils # (Auto) 0.0 CBC Comment DIFF FINAL Differential Comment Prothrombin Time 13.9 Prothromb Time International Ratio 1.2 Blood Urea Nitrogen 14 Creatinine 1.25 Random Glucose 70 Total Protein 6.4 Albumin 3.0 Calcium Level 8.4 Alkaline Phosphatase 69 Aspartate Amino Transf (AST/SGOT) 37 Alanine Aminotransferase (ALT/SGPT) 47 Total Bilirubin 1.3 Sodium Level 134 Potassium Level 3.6 Chloride Level 97 Carbon Dioxide Level 29.9 Anion Gap 7 Estimat Glomerular Filtration Rate 60 Date/Time Source Procedure Growth Status 11/28/16 12:55 Blood Peripheral Aerobic Blood Culture Pending Received 11/28/16 12:55 Blood Peripheral Anaerobic Blood Culture Pending Received 11/27/16 10:55 Wound Foot Gram Stain - Final Resulted 11/27/16 10:55 Wound Foot Wound Culture - Preliminary NO GROWTH IN 24 HOURS. Resulted Result Diagram: 11/28/16 0410 11/28/16 0410 Imaging Previous bone biopsy and xrays at [facility] Assessment and Plan Assessment and Plan Osteomyelitis R foot Painful, infected hardware R foot TO OR for removal of hardware and bone biopsies Will follow results to guide further treatment Dominic Solitario DPM Nov 28, 2016 16:54
[2016-11-28] MEDS ORDERED: LIDOCAINE 2%/EPINEPHrine PF 1:200,000 20ML SDV ONE (16:56)
[2016-11-28] MEDS ORDERED: FAMOTIDINE 20 MG/2 ML VIAL ONE (17:01)
[2016-11-28] MEDS ORDERED: MIDAZOLAM HCL 2 MG/2 ML VIAL ONE (17:01)
[2016-11-28] MEDS ORDERED: GENTAMICIN SULFATE 80 MG/2 ML VIAL ONE (18:02)
[2016-11-28] MEDS ORDERED: DO NOT ADM ANY ANTICOAGULANT DRUGS PRN (19:11)
--- NOTE | 2016-11-28 19:39 | HHI.PR ---
Immediate Post Op Note Procedure Date: Nov 28, 2016 Pre Op Diagnosis: osteomyelitis R foot infected hardware R foot Post Op Diagnosis: same Surgeon: Dominic Solitario DPM Trimmer [employer] Clippings(s): Staff Procedure: 1. removal of painful hardware 2. bone biopsies R foot Findings: consistent with diagnosis. hardware removed medially, plantar calcaneus, and laterally. Bone biopsies sent from distal medial column and proximal lateral column, as well as calcaneus and lateral foot. Culture taken medially. Irrigation with 3L NS with gentamicin, followed by primary closure with 2-0 nylon. Dressing with xeroform, 4x4, abd, cast padding, silviano R foot. Ordered short cam boot RLE. WBAT RLE in fracture boot. Additional Information: Await bone biopsies and culture results. Patient may be followed outpatient to continue medical treatment for osteomyelitis, wound care, and explore bracing options Complications: none Specimen(s) removed: 1. culture R foot 2. bone biopsy R distal medial column 3. bone biopsy R proximal medial column 4. bone biopsy R calcaneus 5. bone biopsy R lateral column Estimated blood loss: 30mL Anesthesia: Regional Block (Popliteal block) Drains: None Tourniquet time (min at mmHg) 78 min R calf at 250mmHg Patient to: PACU Patient Condition: Good Date/Time of Procedure: SEE SURGICAL CARE RECORD Dominic Solitario DPM Nov 28, 2016 19:39
--- NOTE | 2016-11-28 19:39 | EKG ---
Date Performed: 11/27/2016 Time Performed: 13:45:39 PTAGE: 56 years EKG: Sinus rhythm POSSIBLE LEFT ATRIAL ENLARGEMENT INTRAVENTRICULAR CONDUCTION DELAY ABNORMAL ECG NO PREVIOUS TRACING DOCTOR: Jasiel Monte Interpretating Date/Time 11/28/2016 19:35:31
--- NOTE | 2016-11-28 20:01 | RADRPT ---
EXAM DATE/TIME: 11/28/2016 18:39 [facility] COMPARISON: FOOT RIGHT COMPLETE ([id number]), November 28, 2016, 19:33. INDICATIONS : Hardware removal right foot MEDICAL HISTORY : Infection right foot SURGICAL HISTORY : Hardware placement right foot ENCOUNTER: Initial ACUITY: 1 day PAIN SCORE: Non-responsive. LOCATION: Right Foot FINDINGS: There appears to be chronic change throughout the mid and hindfoot with fusion. There is a metallic d ensity seen over the lateral midfoot. CONCLUSION: Chronic change of the hind and midfoot. There is a rounded metallic density seen over the lateral mid foot. Jose Bolivar MD on November 28, 2016 at 19:57 Board Certified Radiologist. This report was verified electronically.
--- NOTE | 2016-11-28 20:42 | RADRPT ---
EXAM DATE/TIME: 11/28/2016 19:33 [facility] COMPARISON: No previous studies available for comparison. INDICATIONS : Post hardware removal right foot MEDICAL HISTORY : Right foot infection SURGICAL HISTORY : Infected right foot ENCOUNTER: Subsequent ACUITY: 1 day PAIN SCORE: 0/10 LOCATION: Right Foot FINDINGS: There is a 0.8 x 0.7 x 0.4 cm ringlike metallic density projecting over the lateral midfoot Y. clean the proximal cuboid region. There is fusion throughout the mid and hindfoot. There is chronic periost eal reaction at the second metatarsal. There appears to be some shortening of the first digit at the level of midfoot. CONCLUSION: Chronic change with a rounded metallic density seen over the lateral proximal mid foot. Jose Bolivar MD on November 28, 2016 at 20:37 Board Certified Radiologist. This report was verified electronically.
[2016-11-28] MEDS: MORPHINE SULFATE 4 MG/ML INJ IV PUSH PRN (23:44)
[2016-11-29] VITALS (23 sets, daily range): BP systolic 108–131; BP diastolic 70–90; PULSE 72–104; RESP 16–22; TEMP 98–98.3; O2SAT 97–98
[2016-11-29] MEDS: HYDROmorphone HCL PF 1 MG/ML VIAL IV PUSH PRN ×4 (02:00→14:50)
[2016-11-29 05:42] LABS: AUTOMATED NEUTROPHIL # 6.4 TH/MM3 (1.8-7.7); BASOPHIL # 0.1 TH/MM3 (0-0.2); BASOPHIL % 0.9 % (0.0-2.0); EOSINOPHIL # 0.1 TH/MM3 (0-0.4); EOSINOPHIL % 0.7 % (0.0-4.0); HEMATOCRIT 41.9 % (39.0-51.0); HEMO FLAGS DIFF FINAL; LYMPH % 16.9 % (9.0-44.0); LYMPHOCYTE # 1.5 TH/MM3 (1.0-4.8); MEAN CELL VOLUME 96.5 FL (80.0-100.0); MEAN CORPUSCULAR HEMOGLOBIN 31.6 PG (27.0-34.0); MEAN CORPUSCULAR HGB CONC 32.7 % (32.0-36.0); MONO % 9.5 % (0.0-8.0); PLATELET COUNT 207 TH/MM3 (150-450); RED BLOOD COUNT 4.35 MIL/MM3 (4.50-5.90); RED CELL DISTRIBUTION WIDTH 20.2 % (11.6-17.2); WHITE BLOOD COUNT 8.8 TH/MM3 (4.0-11.0)
[2016-11-29 06:03] LABS: BICARBONATE 28.6 MEQ/L (21.0-32.0); POTASSIUM 3.8 MEQ/L (3.5-5.1)
[2016-11-29] MEDS: MORPHINE SULFATE 4 MG/ML INJ IV PUSH PRN (09:17)
[2016-11-29] MEDS ORDERED: oxyCODONE/ACETAMINOPHEN 10 MG/325 MG TAB PO PRN (09:45)
[2016-11-29] MEDS ORDERED: oxyCODONE/ACETAMINOPHEN 5 MG/325 MG TAB PO PRN ×2 (09:45→11:45)
[2016-11-29] MEDS ORDERED: NALOXONE HCL 0.4 MG/ML AMP IV PUSH PRN ×2 (09:45→17:15)
[2016-11-29] MEDS ORDERED: HYDROmorphone HCL PF 1 MG/ML VIAL IV PUSH PRN (09:45)
[2016-11-29] MEDS: LISINOPRIL 5 MG TAB PO SCH (09:57)
[2016-11-29] MEDS: DOCUSATE SODIUM 50 MG/SENNA 8.6 MG TAB PO SCH ×2 (09:58→21:20)
[2016-11-29] MEDS: FUROSEMIDE 40 MG TAB PO SCH ×2 (09:58→21:20)
[2016-11-29] MEDS: CARVEDILOL 3.125 MG TAB PO SCH ×2 (09:58→21:20)
[2016-11-29] MEDS ORDERED: HYDROmorphone HCL PF 1 MG/ML VIAL IV PUSH ONE (12:30)
--- NOTE | 2016-11-29 13:04 | HHI.FPPN ---
Subjective Remarks She was seen and examined this morning. He is POD #1 s/p hardware removal of the right foot. He had this under popliteal block which has worn off. He states that he has waves of excruciating pain which is only not down a little bit with his by mouth and IV regimen of pain medication. He states he has had nausea due to the exception of pain but tolerated food today. He is not having much flatus and has not had a bowel movement yet. Denies chest pain, shortness of breath, abdominal pain, fevers, chills. Other systems reviewed and negative. (Trista Martinez MD R2) Objective Vitals Vital Signs Date Time Temp Pulse Resp B/P (MAP) Pulse Ox O2 Delivery O2 Flow Rate FiO2 11/29/16 12:00 96 11/29/16 11:51 93 18 113/90 (98) 97 11/29/16 11:00 100 11/29/16 11:00 98 11/29/16 11:00 98.0 94 22 121/90 (100) 97 11/29/16 10:00 94 11/29/16 10:00 95 11/29/16 09:00 86 11/29/16 08:00 79 11/29/16 08:00 84 11/29/16 07:15 98.0 85 16 131/89 (103) 97 11/29/16 07:00 86 11/29/16 07:00 84 11/29/16 06:00 92 11/29/16 05:00 84 11/29/16 04:00 84 11/29/16 03:01 98.2 77 18 116/82 (93) 98 11/29/16 03:00 88 11/29/16 02:00 84 11/29/16 01:00 80 11/29/16 00:00 98.3 74 18 113/70 (84) 98 11/29/16 00:00 72 11/28/16 23:00 88 11/28/16 22:00 75 11/28/16 21:00 75 11/28/16 20:50 98.3 76 18 125/88 (100) 98 11/28/16 19:45 74 12 120/78 (92) 100 Nasal Cannula 2 11/28/16 19:30 97.4 71 11 123/84 (97) 100 Nasal Cannula 2 11/28/16 19:15 70 8 119/81 (94) 100 Nasal Cannula 2 11/28/16 19:11 97.3 70 10 128/84 (99) 100 Nasal Cannula 2 11/28/16 15:00 92 11/28/16 15:00 97.9 85 18 116/79 (91) 96 11/28/16 14:00 88 11/28/16 13:00 84 I/O 11/28/16 11/28/16 11/28/16 11/29/16 11/29/16 11/29/16 07:00 15:00 23:00 07:00 15:00 23:00 Intake Total 720 ml 500 ml Output Total 730 ml 300 ml Balance 720 ml -230 ml -300 ml Intake Oral 720 ml 0 ml IV Total 500 ml Output Urine Total 700 ml 300 ml Estimated Blood Loss 30 ml # Voids 4 # Bowel Movements 0 (Trista Martinez MD R2) Result Diagram: 11/29/16 0520 11/29/16 0520 Imaging Last Impressions Foot X-Ray 11/28/16 0000 Signed Impressions: Service Date/Time: Monday, November 28, 2016 19:33 - CONCLUSION: Chronic change with a rounded metallic density seen over the lateral proximal mid foot. Jose Bolivar MD Objective Remarks GENERAL: Patient is a well-nourished, well-developed male sitting in bed. He appears to be in excruciating pain over a 5 second period of time during interview and exam. SKIN: Warm and dry. No rashes or ecchymoses noted. There is a postsurgical boot on the right leg up to the knee. Normal appearing PICC line noted in the proximal right arm. HEAD: Atraumatic. Normocephalic. EYES: Pupils equal and round. EOMI. No scleral icterus or conjunctival injection. ENT: No nasal bleeding or discharge. Mucous membranes pink and moist. NECK: Trachea midline. No JVD. CARDIOVASCULAR: Regular rate and rhythm. Patient is wearing defibrillator vest. Auscultation does not reveal any murmurs. Lower extremities have 2+ edema to level just below the knees bilaterally. He has 2+ pulses in upper and lower extremities bilaterally. RESPIRATORY: No accessory muscle use. Clear to auscultation bilaterally without wheezes or rhonchi. Breath sounds equal bilaterally. GASTROINTESTINAL: Abdomen soft, non-tender, nondistended. Hepatic and splenic margins not palpable. Bowel sounds are normal in all 4 quadrants. MUSCULOSKELETAL: Left lower extremity is normal in appearance and has normal motor and strength functions. The right lower extremity is notable for warm toes with normal sensation distal to the boot, normal capillary refill bilaterally in the extremities. NEUROLOGICAL: Awake and alert. No obvious cranial nerve deficits. Motor grossly within normal limits. 5/5 strength in the arms and legs. Normal speech. PSYCHIATRIC: Appropriate mood and affect; insight and judgment normal. Procedures Hardware removal right foot 11/28/[address] Solitario Medications and IVs Inpatient Medications Acetaminophen (Tylenol) 650 mg Q6H PRN PO PAIN SCALE 1 TO 2; Start 11/27/16 at 14:30 Acetaminophen/ Hydrocodone Bitart (Gerber 5-325 Mg) 1 tab Q4H PRN PO PAIN SCALE 3 TO 5 Last administered on 11/29/16 05:48; Start 11/27/16 at 14:30; Stop 11/29/16 at 09:41; Status DC Acetaminophen/ Hydrocodone Bitart (Gerber 10-325 Mg) 1 tab Q4H PRN PO PAIN SCALE 6 TO 10 Last administered on 11/28/16 20:22; Start 11/27/16 at 14:30; Stop 11/29/16 at 01:45; Status DC Bisacodyl (Dulcolax Supp) 10 mg DAILY PRN RECTAL SEVERE CONSITIPATION; Start 11/27/16 at 12:30 Carvedilol (Coreg) 3.125 mg BID PO Last administered on 11/29/16 09:58; Start 11/27/16 at 21:00 Furosemide (Lasix Inj) 40 mg ONCE ONCE IV PUSH Last administered on 11/27/16 15:27; Start 11/27/16 at 15:00; Stop 11/27/16 at 15:01; Status DC Furosemide (Lasix) 40 mg BID PO Last administered on 11/29/16 09:58; Start at 09:00 Hydromorphone HCl (Dilaudid Pf Inj) 1 mg ONCE ONCE IV PUSH Last administered on 11/29/16 12:38; Start 11/29/16 at 12:30; Stop 11/29/16 at 12:32; Status DC Lactulose (Lactulose Liq) 30 ml DAILY PRN PO SEVERE CONSITIPATION; Start at 12:30 Lisinopril (Prinivil) 5 mg DAILY PO Last administered on 11/29/16 09:57; Start 11/28/16 at 09:00 Lorazepam (Ativan Inj) 0.5 mg UNSCH X1 PRN IV PUSH ANXIETY Last administered on 11/28/16 15:24; Start 11/28/16 at 15:15; Stop 11/28/16 at 23:59; Status DC Magnesium Hydroxide (Milk Of Magnesia Liq) 30 ml Q12H PRN PO MILD - MODERATE CONSTIPATION; Start 11/27/16 at 12:30 Miscellaneous Information ALL NURSING DEPARTME... UNSCH PRN .XX SEE LABEL COMMENTS; Start 11/28/16 at 19:11; Stop 11/29/16 at 19:10 Morphine Sulfate (Morphine Inj) 2 mg Q3H PRN IV PUSH BREAKTHROUGH PAIN Last administered on 11/29/16 09:17; Start 11/27/16 at 14:30; Stop 11/29/16 at 09:41 ; Status DC Naloxone HCl (Narcan Inj) 0.4 mg UNSCH PRN IV PUSH SEE LABEL COMMENTS; Start 11/29/16 at 09:45 Ondansetron HCl (Zofran Inj) 4 mg Q6H PRN IVP NAUSEA OR VOMITING; Start at 12:30 Oxycodone/ Acetaminophen (Percocet 5-325 Mg) 1 tab Q6H PRN PO PAIN SCALE 3 TO 5; Start 11/29/16 at 11:45 Oxycodone/ Acetaminophen (Percocet 10-325 Mg) 1 tab Q6H PRN PO PAIN SCALE 6 TO 10; Start 11/29/16 at 11:45 Senna/Docusate Sodium (Yoanna-Colace) 1 tab BID PO Last administered on 09:58; Start 11/27/16 at 21:00 Sennosides (Senokot) 17.2 mg Q12H PRN PO MODERATE - SEVERE CONSTIPATION; Start 11/27/16 at 12:30 Sodium Chloride (NS Flush) 2 ml UNSCH PRN IV FLUSH FLUSH AFTER USING IV ACCESS Last administered on 10/1/17at 21:29; Start 11/27/16 at 10:30 Vancomycin HCl (Vancomycin Inj) 1,250 mg Q12HR IV ; Start 11/27/16 at 21:00; Stop 11/27/16 at 21:00; Status DC Vancomycin HCl 1250 mg/Sodium Chloride 262.5 ml @ 250 mls/hr Q12HR IV ; Start 11/27/16 at 21:00; Stop 11/27/16 at 21:00; Status DC Zolpidem Tartrate (Ambien) 5 mg HS PRN PO INSOMNIA; Start 11/27/16 at 21:00 (Trista Martinez MD R2) Urinary Catheter: No (Trista Martinez MD R2) Vascular Central Line Catheter: No (Trista Martinez MD R2) A/P Assessment and Plan 56-year-old male with a significant cardiac history including thyroid dysfunction, recurrent osteomyelitis of right foot, systolic heart failure with reduced EF 20-25% per report. He wears prescribed defibrillator vest. He was admitted 11/27/16 for scheduled hardware removal of the right foot with cultures pending. Surgery performed 11/28/16. Cultures and biopsy pathology pending. Continue stay for pain control and continue monitoring. Discharge Planning Pending surgical clearance from podiatry, pain control Patient will need to follow up with his supervisor paint and web search evaluator closely after discharge (Trista Martinez MD R2) Attending Attestation Patient seen and examined. Case reviewed and discussed Agree with plan of care as discussed with me and documented in the resident note. (Vijaya Gallardo MD) Problem List: (1) Osteomyelitis of right foot ICD Codes: M86.9 - Osteomyelitis, unspecified Status: Acute Plan: Osteomyelitis/Infected Hardware Right Foot Hardware removal 11/28/16, biopsy and culture results pending * Patient does not meet SIRS or sepsis criteria based on intake labs and vital signs * Status post vancomycin x 6 weeks via home health nursing. Last dose of vancomycin was morning of 11/27. * Vancomycin likely to be continued if febrile, worsening pain, culture results positive * Pain control for now with Tylenol 650mg for pain 1-2 Percocet 5-325mg for pain 3-5, Percocet 10-325mg pain 6-10, Dilaudid 1 mg IV q 3 PRN breakthrough. Transition to Dilaudid [employer] as needed * Activity WBAT per podiatry, PT consulted * Request for records from podiatrists, hospitalizations pending (2) Infected hardware in right lower extremity ICD Codes: T84.7XXA - Infection and inflammatory reaction due to other internal orthopedic prosthetic devices, implants and grafts, initial encounter Status: Acute Plan: As above (3) Heart failure, systolic, chronic, etiology unknown ICD Codes: I50.22 - Chronic systolic (congestive) heart failure Status: Chronic Plan: CHF with reduced EF Compensated. Per patient was recently EF is 25%. He states it was as low as 10% back in May 2016. Cardiology consulted for medical clearance and recommendations regarding anesthesia. Caution with IV fluids given reportedly low EF. Outpatient supervisor paint is Dr. Betts (sp) * EKG on admission showing LV conduction delay * Patient is on anastrozole, unclear why patient will be on this medication, he states it is "for his cholesterol", will hold at this time. Repeat medicine reconciliation is pending * Request for records from supervisor paint pending * Continue ROBB, BB, Lasix * Appreciate cardiology recs * Continue telemetry and monitor in [facility] for now (4) CHF (congestive heart failure), NYHA class II ICD Codes: I50.9 - Heart failure, unspecified Status: Chronic Plan: As above (5) Atrial fibrillation, currently in sinus rhythm ICD Codes: Z86.79 - Personal history of other diseases of the circulatory system Status: Chronic Plan: Rate controlled. On Eliquis, will hold given procedure 11/28, place on telemetry. Restart once cleared to do so by podiatry (6) Thyroid disorder ICD Codes: E07.9 - Disorder of thyroid, unspecified Status: Chronic Plan: Unclear history from patient. Patient appears to be on levothyroxine, [place] Thyroid, and? Iodine though he is unsure. TSH is within normal limits, will restart levothyroxine. If patient has any acute symptoms suggesting thyroid dysfunction is active, will reassess. (7) Hypoglycemia ICD Codes: E16.2 - Hypoglycemia, unspecified Status: Resolved Plan: Noted. Patient is not diabetic. Patient is asymptomatic. He is eating. We 'll continue to monitor, if ever symptomatic will initiate hypoglycemic protocol and initiate further workup (8) Fluids/Electrolytes/Nutrition/Prophylaxis Status: Acute Plan: PRN Medications Vasotec 1.25mg for BP >180/110 Stool softeners and other constipation medications order per protocol Fluids/Electrolytes/Nutrition/Prophylaxis Fluids: tolerating PO Electrolytes: monitor and replete as needed Nutrition: Heart healthy diet DVT Prophylaxis: Early ambulation. On Plavix at home, restart possibly tomorrow. SCDs on LLE while immobile. GI Prophylaxis: None indicated at this time (Trista Martinez MD R2) Trista Martinez MD R2 Nov 29, 2016 13:04 Vijaya Gallardo MD Dec 03, 2016 13:31
[2016-11-29] MEDS ORDERED: Vancomycin Consult Pharmacy 1 EA OTHER SCH (13:45)
[2016-11-29] MEDS ORDERED: VANCOMYCIN INJ 1,000 MG in SODIUM CHLOR 0.9% 250 ML INJ 250 ML IV SCH (14:00)
[2016-11-29] MEDS: oxyCODONE/ACETAMINOPHEN 10 MG/325 MG TAB PO PRN (16:43)
[2016-11-29] MEDS: VANCOMYCIN INJ 1,500 MG in SODIUM CHLORID 0.9% 500 ML INJ 500 ML IV SCH (16:44)
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
[2016-11-29] MEDS: HYDROmorphone HCL PCA 6 MG/30 ML IV SCH (18:14)
--- NOTE | 2016-11-29 22:34 | PD.POD ---
Subjective Podiatric Problems s/p ROSALES and bone biopsies R foot, Dr Solitario 11/28/16 Past Med/Surg/Social History Social History Smoking Status: Former Smoker Objective Vital Signs Vital Signs Date Time Temp Pulse Resp B/P (MAP) Pulse Ox O2 Delivery O2 Flow Rate FiO2 11/29/16 20:20 98.2 97 18 108/76 (87) 97 11/29/16 18:14 14 11/29/16 18:00 99 11/29/16 17:00 92 11/29/16 16:00 96 11/29/16 15:00 95 11/29/16 15:00 98.2 98 17 111/79 (90) 97 11/29/16 14:00 104 11/29/16 13:00 96 11/29/16 12:00 96 11/29/16 11:51 93 18 113/90 (98) 97 11/29/16 11:00 100 11/29/16 11:00 98 11/29/16 11:00 98.0 94 22 121/90 (100) 97 11/29/16 10:00 94 11/29/16 10:00 95 11/29/16 09:00 86 11/29/16 08:00 79 11/29/16 08:00 84 11/29/16 07:15 98.0 85 16 131/89 (103) 97 11/29/16 07:00 86 11/29/16 07:00 84 11/29/16 06:00 92 11/29/16 05:00 84 11/29/16 04:00 84 11/29/16 03:01 98.2 77 18 116/82 (93) 98 11/29/16 03:00 88 11/29/16 02:00 84 11/29/16 01:00 80 11/29/16 00:00 98.3 74 18 113/70 (84) 98 11/29/16 00:00 72 11/28/16 23:00 88 Coded Allergies: No Known Allergies (Unverified , 11/27/16) Assessment & Plan A/P s/p ROSALES and bone biopsies R foot, Dr Solitario 11/28/16 Keep bandage clean, dry Awaiting bone biopsy and culture results to guide further antibiotic choice/ time period CT scan R foot ordered to evaluate joints Dominic Solitario DPM Nov 29, 2016 22:34
[2016-11-30] VITALS (15 sets, daily range): BP systolic 118–131; BP diastolic 68–90; PULSE 76–106; RESP 16–18; TEMP 97.7–98.1; O2SAT 97–99
[2016-11-30] MEDS: HYDROmorphone HCL PCA 6 MG/30 ML IV SCH ×3 (00:03→21:19)
[2016-11-30] MEDS: oxyCODONE/ACETAMINOPHEN 10 MG/325 MG TAB PO PRN ×4 (01:22→20:40)
[2016-11-30] MEDS: VANCOMYCIN INJ 1,500 MG in SODIUM CHLORID 0.9% 500 ML INJ 500 ML IV SCH ×2 (04:00→15:00)
[2016-11-30 04:52] LABS: AUTOMATED NEUTROPHIL # 6.4 TH/MM3 (1.8-7.7); BASOPHIL # 0.1 TH/MM3 (0-0.2); BASOPHIL % 0.7 % (0.0-2.0); EOSINOPHIL # 0.1 TH/MM3 (0-0.4); EOSINOPHIL % 0.7 % (0.0-4.0); HEMATOCRIT 42.3 % (39.0-51.0); HEMO FLAGS DIFF FINAL; LYMPH % 20.4 % (9.0-44.0); LYMPHOCYTE # 1.9 TH/MM3 (1.0-4.8); MEAN CELL VOLUME 97.2 FL (80.0-100.0); MEAN CORPUSCULAR HEMOGLOBIN 32.3 PG (27.0-34.0); MEAN CORPUSCULAR HGB CONC 33.2 % (32.0-36.0); MONO % 11.2 % (0.0-8.0); PLATELET COUNT 204 TH/MM3 (150-450); RED BLOOD COUNT 4.35 MIL/MM3 (4.50-5.90); RED CELL DISTRIBUTION WIDTH 19.8 % (11.6-17.2); WHITE BLOOD COUNT 9.5 TH/MM3 (4.0-11.0)
[2016-11-30 04:58] LABS: INTERNATIONAL NORMALIZED RATIO 1.3 RATIO
[2016-11-30 05:20] LABS: BICARBONATE 28.8 MEQ/L (21.0-32.0); MAGNESIUM 1.7 MG/DL (1.5-2.5); POTASSIUM 3.5 MEQ/L (3.5-5.1)
[2016-11-30] MEDS: PCA - TOTAL MG DILAUDID DELIVERED PER SHIFT OTHER SCH ×2 (06:00→14:00)
--- NOTE | 2016-11-30 06:15 | RADRPT ---
EXAM DATE/TIME: 11/30/2016 05:19 This report includes an Addendum and supersedes previous reports for this exam. [facility] COMPARISON: FOOT RIGHT COMPLETE ([id number]), November 28, 2016, 19:33. INDICATIONS : Infection in right foot, post hardware removal. RADIATION DOSE: 7.29 CTDIvol (mGy) MEDICAL HISTORY : Congestive heart failure. Hypertension. SURGICAL HISTORY : Right foot surgery. Hernia repair. ENCOUNTER: Initial ACUITY: 1 day PAIN SCALE: 3/10 LOCATION: Right foot TECHNIQUE: Volumetric scanning of the foot was performed. Using automated exposure control and adjustment of th e mA and/or kV according to patient size, radiation dose was kept as low as reasonably achievable to obtain optimal diagnostic quality images. DICOM format image data is available electronically for re view and comparison. FINDINGS: There is evidence of previous subtalar, talonavicular, calcaneocuboid and and Lisfranc arthrodesis wi th hardware removed. There are indurated soft tissues, especially medially of the hindfoot and midfoo t with associated cortical irregularity of numerous bones, including the distal talus, the navicular, the medial cuneiform and to a slightly lesser degree the base of the first metatarsal. A few bubbles of gas are seen in the soft tissues laterally near the calcaneocuboid joint as well but without defi nite underlying bone changes. Diffuse heterogeneous osteopenia seen. CONCLUSION: Evidence of multifocal hardware removal after hindfoot and midfoot arthrodesis. Medial greater than l ateral hindfoot and mid foot soft tissues are indurated. Medial predominant multifocal bone cortical irregularity as above, some of which may be partly postsurgical but of concern for osteomyelitis of t he talus, navicular, medial cuneiform and first metatarsal base in the proper clinical setting. Jose Tesfaye MD on November 30, 2016 at 6:05 Board Certified Radiologist. This report was verified electronically. ADDENDUM: I don't see fracture or nonunion. Solid appearing bony bridging seen across the subtalar joint, the t alonavicular and calcaneocuboid joints, the navicular/cuneiform and intercuneiform joints and en bloc bridging between the intermediate cuneiform, medial cuneiform and first and second metatarsal bases. Jose Tesfaye MD on December 01, 2016 at 1:59 Board Certified Radiologist. This report was verified electronically.
[2016-11-30] MEDS: CARVEDILOL 3.125 MG TAB PO SCH ×2 (08:20→20:41)
[2016-11-30] MEDS: LISINOPRIL 5 MG TAB PO SCH (08:20)
[2016-11-30] MEDS: FUROSEMIDE 40 MG TAB PO SCH ×2 (08:20→20:41)
[2016-11-30] MEDS: LEVOTHYROXINE SODIUM 50 MCG TAB PO SCH (08:21)
[2016-11-30] MEDS: DOCUSATE SODIUM 50 MG/SENNA 8.6 MG TAB PO SCH ×2 (08:21→20:41)
--- NOTE | 2016-11-30 11:20 | HHI.FPPN ---
Subjective Remarks Patient seen and examined today. Endorses continued pain in the right foot. It is located on the medial right foot, where he had the hardware removed. Does not extend up his leg. No burning, tingling, itching in his leg. States it is currently well controlled with the HAND WOODWORKING SANDER pump. Intermittent sleep awaking last night due to pain, however was able to sleep in increments follow pain medication administration. No other complaints today. No chest pain, abdominal pain, shortness of breath, change in bowel or bladder habits. (Hilario Kumar MD R1) Objective Vitals Vital Signs Date Time Temp Pulse Resp B/P (MAP) Pulse Ox O2 Delivery O2 Flow Rate FiO2 11/30/16 08:54 16 11/30/16 08:20 16 11/30/16 08:00 84 11/30/16 08:00 88 11/30/16 07:00 87 11/30/16 07:00 98.1 87 18 120/90 (100) 97 11/30/16 00:03 20 11/29/16 20:20 98.2 97 18 108/76 (87) 97 11/29/16 18:14 14 11/29/16 18:00 99 11/29/16 17:00 92 11/29/16 16:00 96 11/29/16 15:00 95 11/29/16 15:00 98.2 98 17 111/79 (90) 97 11/29/16 14:00 104 11/29/16 13:00 96 11/29/16 12:00 96 11/29/16 11:51 93 18 113/90 (98) 97 I/O 11/29/16 11/29/16 11/29/16 11/30/16 11/30/16 11/30/16 07:00 15:00 23:00 07:00 15:00 23:00 Intake Total 500 ml Output Total 300 ml 900 ml 1100 ml Balance -300 ml -400 ml -1100 ml Intake Oral 500 ml Output Urine Total 300 ml 900 ml 1100 ml (Hilario Kumar MD R1) Result Diagram: 11/30/16 0435 11/30/16 0435 Imaging Last 48 hours Impressions Lower Extremity CT 11/29/16 0000 Signed Impressions: Service Date/Time: Wednesday, November 30, 2016 05:19 - CONCLUSION: Evidence of multifocal hardware removal after hindfoot and midfoot arthrodesis. Medial greater than lateral hindfoot and mid foot soft tissues are indurated. Medial predominant multifocal bone cortical irregularity as above, some of which may be partly postsurgical but of concern for osteomyelitis of the talus, navicular, medial cuneiform and first metatarsal base in the proper clinical setting. Jose Tesfaye MD Objective Remarks GENERAL: Patient is a well-nourished, well-developed male sitting in bed in no acute distress. SKIN: Warm and dry. No rashes or ecchymoses noted. There is a postsurgical boot on the right leg up to the knee. Normal appearing PICC line noted in the proximal right arm. HEAD: Atraumatic. Normocephalic. EYES: Pupils equal and round. EOMI. No scleral icterus or conjunctival injection. ENT: No nasal bleeding or discharge. Mucous membranes pink and moist. NECK: Trachea midline. No JVD. CARDIOVASCULAR: Regular rate and rhythm. Patient is wearing defibrillator vest. Auscultation does not reveal any murmurs. Lower extremities have 2+ edema to level just below the knees bilaterally. He has 2+ pulses in upper and lower extremities bilaterally. RESPIRATORY: No accessory muscle use. Clear to auscultation bilaterally without wheezes or rhonchi. Breath sounds equal bilaterally. GASTROINTESTINAL: Abdomen soft, non-tender, nondistended. Hepatic and splenic margins not palpable. Bowel sounds are normal in all 4 quadrants. MUSCULOSKELETAL: Left lower extremity is normal in appearance and has normal motor and strength functions. The right lower extremity is notable for warm toes with normal sensation distal to the boot, normal capillary refill bilaterally in the extremities. Able to wiggle toes in boot on right foot. NEUROLOGICAL: Awake and alert. No obvious cranial nerve deficits. Motor grossly within normal limits. 5/5 strength in the arms and legs. Normal speech. Good light and hard touch sensation on right foot. PSYCHIATRIC: Appropriate mood and affect; insight and judgment normal. Procedures Hardware removal right foot 11/28/[address] Solitario (Hilario Kumar MD R1) A/P Assessment and Plan 56-year-old male with a significant cardiac history including thyroid dysfunction, recurrent osteomyelitis of right foot, systolic heart failure with reduced EF 20-25% per report. He wears prescribed defibrillator vest. He was admitted 11/27/16 for scheduled hardware removal of the right foot with cultures pending. Surgery performed 11/28/16. Cultures and biopsy pathology pending. Continue stay for pain control and continue monitoring. Discharge Planning Pending surgical clearance from podiatry, pain control Patient will need to follow up with his job development specialist and associate embalmer/funeral director closely after discharge (Hilario Kumar MD R1) Attending Attestation Patient seen and examined. Case reviewed and discussed Agree with plan of care as discussed with me and documented in the resident note. (Vijaya aGllardo MD) Problem List: (1) Osteomyelitis of right foot ICD Codes: M86.9 - Osteomyelitis, unspecified Status: Acute Plan: Osteomyelitis/Infected Hardware Right Foot Hardware removal 11/28/16, biopsy and culture results pending * Patient does not meet SIRS or sepsis criteria based on intake labs and vital signs * Status post vancomycin x 6 weeks via home health nursing. Last dose of vancomycin was morning of 11/27. * Currently continuing Vancomycin Q12 * On HAND WOODWORKING SANDER pump Dose .2mg, lock out 6 minutes, 1 hour limit 2mg , pain controlled * Activity WBAT per podiatry, PT consulted * Request for records from podiatrists, hospitalizations pending (2) Infected hardware in right lower extremity ICD Codes: T84.7XXA - Infection and inflammatory reaction due to other internal orthopedic prosthetic devices, implants and grafts, initial encounter Status: Acute Plan: As above (3) Heart failure, systolic, chronic, etiology unknown ICD Codes: I50.22 - Chronic systolic (congestive) heart failure Status: Chronic Plan: CHF with reduced EF Compensated. Per patient was recently EF is 25%. He states it was as low as 10% back in May 2016. Cardiology consulted for medical clearance and recommendations regarding anesthesia. Caution with IV fluids given reportedly low EF. Outpatient job development specialist is Dr. Betts (sp) * EKG on admission showing LV conduction delay * Patient is on anastrozole, unclear why patient will be on this medication, he states it is "for his cholesterol", will hold at this time. Repeat medicine reconciliation is pending * Request for records from job development specialist pending * Continue ROBB, BB, Lasix * Appreciate cardiology recs * Continue telemetry and monitor in [facility] for now (4) CHF (congestive heart failure), NYHA class II ICD Codes: I50.9 - Heart failure, unspecified Status: Chronic Plan: As above (5) Atrial fibrillation, currently in sinus rhythm ICD Codes: Z86.79 - Personal history of other diseases of the circulatory system Status: Chronic Plan: Rate controlled. On Eliquis, will hold given procedure 11/28, place on telemetry. Restart once cleared to do so by podiatry (6) Thyroid disorder ICD Codes: E07.9 - Disorder of thyroid, unspecified Status: Chronic Plan: Unclear history from patient. Patient appears to be on levothyroxine, [place] Thyroid, and? Iodine though he is unsure. TSH is within normal limits, will restart levothyroxine. If patient has any acute symptoms suggesting thyroid dysfunction is active, will reassess. (7) Hypoglycemia ICD Codes: E16.2 - Hypoglycemia, unspecified Status: Resolved Plan: Noted. Patient is not diabetic. Patient is asymptomatic. He is eating. We 'll continue to monitor, if ever symptomatic will initiate hypoglycemic protocol and initiate further workup (8) Fluids/Electrolytes/Nutrition/Prophylaxis Status: Acute Plan: PRN Medications Vasotec 1.25mg for BP >180/110 Stool softeners and other constipation medications order per protocol Fluids/Electrolytes/Nutrition/Prophylaxis Fluids: tolerating PO Electrolytes: monitor and replete as needed Nutrition: Heart healthy diet DVT Prophylaxis: Early ambulation. On Plavix at home, restart possibly tomorrow. SCDs on LLE while immobile. GI Prophylaxis: None indicated at this time (Hilario Kumar MD R1) Hilario Kumar MD R1 Nov 30, 2016 11:20 Vijaay Gallardo MD Dec 03, 2016 13:31
--- NOTE | 2016-11-30 17:33 | PD.POD ---
Subjective Podiatric Problems s/p ROSALES and bone biopsies R foot, Dr Solitario 11/28/16 Past Med/Surg/Social History Social History Smoking Status: Former Smoker Objective Vital Signs Vital Signs Date Time Temp Pulse Resp B/P (MAP) Pulse Ox O2 Delivery O2 Flow Rate FiO2 11/30/16 16:00 97.8 91 16 118/82 (94) 99 11/30/16 16:00 84 11/30/16 15:00 86 11/30/16 14:33 20 11/30/16 14:00 96 11/30/16 14:00 16 11/30/16 13:00 84 11/30/16 12:00 97.7 92 16 131/86 (101) 99 11/30/16 12:00 76 11/30/16 12:00 82 11/30/16 11:00 82 11/30/16 10:00 100 11/30/16 09:00 94 11/30/16 08:20 16 11/30/16 08:00 84 11/30/16 08:00 88 11/30/16 07:00 82 11/30/16 07:00 87 11/30/16 07:00 98.1 87 18 120/90 (100) 97 11/30/16 00:03 20 11/29/16 20:20 98.2 97 18 108/76 (87) 97 11/29/16 18:14 14 11/29/16 18:00 99 Coded Allergies: No Known Allergies (Unverified , 11/27/16) Other Results Last 72 hours Impressions Lower Extremity CT 11/29/16 0000 Signed Impressions: Service Date/Time: Wednesday, November 30, 2016 05:19 - CONCLUSION: Evidence of multifocal hardware removal after hindfoot and midfoot arthrodesis. Medial greater than lateral hindfoot and mid foot soft tissues are indurated. Medial predominant multifocal bone cortical irregularity as above, some of which may be partly postsurgical but of concern for osteomyelitis of the talus, navicular, medial cuneiform and first metatarsal base in the proper clinical setting. Jose Tesfaye MD Foot X-Ray 11/28/16 0000 Signed Impressions: Service Date/Time: Monday, November 28, 2016 19:33 - CONCLUSION: Chronic change with a rounded metallic density seen over the lateral proximal mid foot. Jose Bolivar MD Foot X-Ray 11/28/16 0000 Signed Impressions: Service Date/Time: Monday, November 28, 2016 18:39 - CONCLUSION: Chronic change of the hind and midfoot. There is a rounded metallic density seen over the lateral midfoot. Jose Bolivar MD Physical Exam Remarks R foot bandage clean, dry, intact. Assessment & Plan A/P s/p ROSALES and bone biopsies R foot, Dr Solitario 11/28/16 Keep bandage clean, dry Awaiting bone biopsy and culture results to guide further antibiotic choice/ time period CT scan R foot reviewed with patient. Will speak with radiologist for more detail regarding medial aspect of foot. Discussed possible debridement of infected bone pending bone biopsy results WBAT in boot R lower extremity. OK to remove boot when at rest. Dominic Solitario DPM Nov 30, 2016 17:33
--- NOTE | 2016-11-30 23:20 | MP ---
cc: FAYE NATION D[place]wood DATE OF : 1960 DATE OF SURGERY: November 28, 2016 INDICATIONS: The patient presented to the emergency department to be admitted for further surgery. Due to low ejection fraction he has had eye surgery in the hospital and cannot undergo general anesthesia. He went to [facility] with an abscess in the medial aspect of the right foot and abscess with exposed hardware. A bone biopsy was performed approximately six weeks ago that showed osteomyelitis of the proximal aspect of the first metatarsal with cultures for MRSA. He finished his six weeks of IV antibiotics with vancomycin after that and continued to have pain, swelling and drainage coming from the area, so I sent him to the hospital to be admitted for removal of all of the hardware in the area, and further bone biopsies and examination to determine what his options are for treatment in the future. I discussed with him that we would at least remove the infected hardware and take bone biopsies to determine further treatment. He consented to the procedures and was seen in preop holding by myself, nursing staff and anesthesia where the correct patient, side and site were all confirmed to be correct in the right foot. He was taken back to the surgical suite, placed in supine position, where the right foot was prepped and draped in normal sterile fashion, followed by attention directed to the medial aspect of the right foot where there was a large defect measuring approximately 1.5 cm x 1 cm with exposed hardware in the base of the wound, the proximal aspect of the first metatarsal area. An incision was continued along the medial aspect of the foot proximally to make an incision measuring approximately 6 cm, in order to expose the area to remove all the hardware. The medial plate was removed. It was noted to be broken in the center. The plate and all screws were removed, confirmed with C-arm. Following this, the plantar incision was made in the area of the calcaneus in order to remove the one screw going through the subtalar joint area. The screw was removed and confirmed via C-arm. Attention was directed to the lateral aspect of the calcaneocuboid joint where the lateral column fusion had taken place and an incision was made down to remove that hardware. It was exposed, removed and confirmed via C-arm. All areas were copiously irrigated followed by closure with 2-0 nylon suture after bone biopsies were taken from the lateral column, the plantar calcaneus, as well as two from the medial column, one from the proximal first metatarsal/medial cuneiform area and another from around the talonavicular area and sent to pathology for gross examination to determine osteomyelitis. A culture was also taken of the medial aspect of the wound where there appeared to be some purulent drainage at the beginning of the procedure. Following this the areas were copiously irrigated followed by closure with 2-0 nylon suture followed by dressing consisting of Xeroform, 4x4s, ABD pad, cast padding and Ab bandage to the right lower extremity. He tolerated the procedure and anesthesia well without complications and will be weightbearing as tolerated in a fracture boot to the right lower extremity. We will await bone biopsy results to determine further treatment plan. SHORT OPERATIVE NOTE SURGEON Faye Nation MD. POULTRY BONER: Staff. PREOPERATIVE DIAGNOSIS 1. Removal of painful hardware right foot. 2. Bone biopsies right foot. ANESTHESIA: Popliteal block. COMPLICATIONS: None. SPECIMENS REMOVED 1. Culture right foot. 2. Bone biopsy right distal medial column. 3. Bone biopsy right proximal medial column. 4. Bone biopsy right calcaneus 5. Bone biopsy right lateral column. COMPLICATIONS None. CONDITION: Stable to PACU. DISPOSITION: Weightbearing as tolerated, right foot in fracture boot and will await these results to determine further treatment. Faye MCCABE/JOVANA /5:49 PM /11:03 PM
[2016-12-01] VITALS (8 sets, daily range): BP systolic 99–128; BP diastolic 68–89; PULSE 85–101; RESP 16–19; TEMP 97.3–97.9; O2SAT 93–99
[2016-12-01] MEDS: oxyCODONE/ACETAMINOPHEN 10 MG/325 MG TAB PO PRN ×5 (02:47→22:40)
[2016-12-01] MEDS ORDERED: PHARMACY ORDERED LAB ONE (03:45)
[2016-12-01] MEDS: VANCOMYCIN INJ 1,500 MG in SODIUM CHLORID 0.9% 500 ML INJ 500 ML IV SCH ×2 (03:58→16:02)
[2016-12-01] MEDS: PCA - TOTAL MG DILAUDID DELIVERED PER SHIFT OTHER SCH ×3 (06:00→22:39)
[2016-12-01] MEDS: CARVEDILOL 3.125 MG TAB PO SCH ×2 (08:53→20:20)
[2016-12-01] MEDS: LISINOPRIL 5 MG TAB PO SCH (08:53)
[2016-12-01] MEDS: LEVOTHYROXINE SODIUM 50 MCG TAB PO SCH (08:54)
[2016-12-01] MEDS: FUROSEMIDE 40 MG TAB PO SCH ×2 (08:54→20:20)
[2016-12-01] MEDS: DOCUSATE SODIUM 50 MG/SENNA 8.6 MG TAB PO SCH ×2 (08:54→20:21)
[2016-12-01] MEDS ORDERED: oxyCODONE/ACETAMINOPHEN 5 MG/325 MG TAB PO PRN (14:00)
[2016-12-01 14:21] LABS: HEMATOCRIT 39.9 % (39.0-51.0); MEAN CELL VOLUME 95.8 FL (80.0-100.0); MEAN CORPUSCULAR HEMOGLOBIN 31.4 PG (27.0-34.0); MEAN CORPUSCULAR HGB CONC 32.8 % (32.0-36.0); PLATELET COUNT 189 TH/MM3 (150-450); RED BLOOD COUNT 4.16 MIL/MM3 (4.50-5.90); RED CELL DISTRIBUTION WIDTH 19.9 % (11.6-17.2); REVIEW FLAG FINAL; WHITE BLOOD COUNT 6.8 TH/MM3 (4.0-11.0)
[2016-12-01] MEDS: HYDROmorphone HCL PCA 6 MG/30 ML IV SCH (14:27)
[2016-12-01 14:38] LABS: BICARBONATE 26.8 MEQ/L (21.0-32.0); POTASSIUM 3.3 MEQ/L (3.5-5.1)
--- NOTE | 2016-12-01 16:20 | HHI.FPPN ---
Subjective Remarks Patient seen and examined today. States pain is currently well-controlled, using CHAR FILTER OPERATOR pump less regularly. Pain still located in same area. No nausea, vomiting, fever, chills, pain, change in urine or bowel habits. Past bowel movement yesterday. (Hilario Kumar MD R1) Objective Vitals Vital Signs Date Time Temp Pulse Resp B/P (MAP) Pulse Ox O2 Delivery O2 Flow Rate FiO2 12/01/16 14:57 16 12/01/16 14:27 16 12/01/16 14:00 16 12/01/16 12:23 97.6 96 19 120/75 (90) 96 12/01/16 08:00 94 12/01/16 07:59 97.7 89 18 121/83 (96) 93 12/01/16 06:00 20 12/01/16 04:00 97.4 91 16 122/89 (100) 95 12/01/16 00:00 97.6 101 17 128/85 (99) 96 11/30/16 22:11 103 11/30/16 21:19 20 11/30/16 20:00 97.8 106 17 130/88 (102) 98 11/30/16 19:05 97.8 82 16 127/68 (87) 99 11/30/16 18:00 102 11/30/16 17:00 92 I/O 11/30/16 11/30/16 11/30/16 12/01/16 12/01/16 12/01/16 07:00 15:00 23:00 07:00 15:00 23:00 Intake Total 1851 ml 640 ml Output Total 1100 ml 740 ml 1100 ml Balance -1100 ml 1111 ml -460 ml Intake Oral 1000 ml IV Total 851 ml 640 ml Output Urine Total 1100 ml 740 ml 1100 ml # Bowel Movements 0 (Hilario Kumar MD R1) Result Diagram: 12/01/16 1341 12/01/16 1341 Objective Remarks GENERAL: Patient is a well-nourished, well-developed male sitting in bed in no acute distress. SKIN: Warm and dry. No rashes or ecchymoses noted. There is a postsurgical boot on the right leg up to the knee. Normal appearing PICC line noted in the proximal right arm. HEAD: Atraumatic. Normocephalic. EYES: Pupils equal and round. EOMI. No scleral icterus or conjunctival injection. ENT: No nasal bleeding or discharge. Mucous membranes pink and moist. NECK: Trachea midline. No JVD. CARDIOVASCULAR: Regular rate and rhythm. Patient is wearing defibrillator vest. Auscultation does not reveal any murmurs. Lower extremities have 2+ edema to level just below the knees bilaterally. He has 2+ pulses in upper and lower extremities bilaterally. RESPIRATORY: No accessory muscle use. Clear to auscultation bilaterally without wheezes or rhonchi. Breath sounds equal bilaterally. GASTROINTESTINAL: Abdomen soft, non-tender, nondistended. Hepatic and splenic margins not palpable. Bowel sounds are normal in all 4 quadrants. MUSCULOSKELETAL: Left lower extremity is normal in appearance and has normal motor and strength functions. The right lower extremity is notable for warm toes with normal sensation distal to the boot, normal capillary refill bilaterally in the extremities. Able to wiggle toes in boot on right foot. NEUROLOGICAL: Awake and alert. No obvious cranial nerve deficits. Motor grossly within normal limits. 5/5 strength in the arms and legs. Normal speech. Good light and hard touch sensation on right foot. PSYCHIATRIC: Appropriate mood and affect; insight and judgment normal. Procedures Hardware removal right foot 11/28/[address] Solitario (Hilario Kumar MD R1) A/P Assessment and Plan 56-year-old male with a significant cardiac history including thyroid dysfunction, recurrent osteomyelitis of right foot, systolic heart failure with reduced EF 20-25% per report. He wears prescribed defibrillator vest. He was admitted 11/27/16 for scheduled hardware removal of the right foot with cultures pending. Surgery performed 11/28/16. Cultures and biopsy pathology pending. Continue stay for pain control and continue monitoring. Discharge Planning Pending surgical clearance from podiatry, pain control Patient will need to follow up with his category specialist and digital content marketing manager closely after discharge (Hilario Kumar MD R1) Attending Attestation Patient seen and examined. Case reviewed and discussed Agree with plan of care as discussed with me and documented in the resident note. (Vijaya Gallardo MD) Problem List: (1) Osteomyelitis of right foot ICD Codes: M86.9 - Osteomyelitis, unspecified Status: Acute Plan: Osteomyelitis/Infected Hardware Right Foot Hardware removal 11/28/16 * Patient does not meet SIRS or sepsis criteria based on intake labs and vital signs * Status post vancomycin x 6 weeks via home health nursing. Last dose of vancomycin was morning of 11/27. 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 Features of acute osteomyelitis in distal aspect of medial column * Activity WBAT per podiatry, PT consulted * Request for records from podiatrists, hospitalizations pending (2) Infected hardware in right lower extremity ICD Codes: T84.7XXA - Infection and inflammatory reaction due to other internal orthopedic prosthetic devices, implants and grafts, initial encounter Status: Acute Plan: As above (3) Heart failure, systolic, chronic, etiology unknown ICD Codes: I50.22 - Chronic systolic (congestive) heart failure Status: Chronic Plan: CHF with reduced EF Compensated. Per patient was recently EF is 25%. He states it was as low as 10% back in May 2016. Cardiology consulted for medical clearance and recommendations regarding anesthesia. Caution with IV fluids given reportedly low EF. Outpatient category specialist is Dr. Betts (sp) * EKG on admission showing LV conduction delay * Patient is on anastrozole, unclear why patient will be on this medication, he states it is "for his cholesterol", will hold at this time. Repeat medicine reconciliation is pending * Request for records from category specialist pending * Continue ROBB, BB, Lasix * Appreciate cardiology recs * Continue telemetry and monitor in [facility] for now (4) CHF (congestive heart failure), NYHA class II ICD Codes: I50.9 - Heart failure, unspecified Status: Chronic Plan: As above (5) Atrial fibrillation, currently in sinus rhythm ICD Codes: Z86.79 - Personal history of other diseases of the circulatory system Status: Chronic Plan: Rate controlled. On Eliquis, will hold given procedure 11/28, place on telemetry. Restart once cleared to do so by podiatry (6) Thyroid disorder ICD Codes: E07.9 - Disorder of thyroid, unspecified Status: Chronic Plan: Unclear history from patient. Patient appears to be on levothyroxine, [place] Thyroid, and? Iodine though he is unsure. TSH is within normal limits, will restart levothyroxine. If patient has any acute symptoms suggesting thyroid dysfunction is active, will reassess. (7) Hypoglycemia ICD Codes: E16.2 - Hypoglycemia, unspecified Status: Resolved Plan: Noted. Patient is not diabetic. Patient is asymptomatic. He is eating. We 'll continue to monitor, if ever symptomatic will initiate hypoglycemic protocol and initiate further workup (8) Fluids/Electrolytes/Nutrition/Prophylaxis Status: Acute Plan: PRN Medications Vasotec 1.25mg for BP >180/110 Stool softeners and other constipation medications order per protocol Fluids/Electrolytes/Nutrition/Prophylaxis Fluids: tolerating PO Electrolytes: monitor and replete as needed Nutrition: Heart healthy diet DVT Prophylaxis: Early ambulation. On Plavix at home, restart possibly tomorrow. SCDs on LLE while immobile. GI Prophylaxis: None indicated at this time (Hilario Kumar MD R1) Hilario Kumar MD R1 Dec 01, 2016 16:20 Vijaya Gallardo MD Dec 03, 2016 13:31
--- NOTE | 2016-12-01 20:51 | PD.POD ---
Subjective Podiatric Problems s/p ROSALES and bone biopsies R foot, Dr Solitario 11/28/16 Past Med/Surg/Social History Social History Smoking Status: Former Smoker Objective Vital Signs Vital Signs Date Time Temp Pulse Resp B/P (MAP) Pulse Ox O2 Delivery O2 Flow Rate FiO2 12/01/16 20:35 97.9 88 17 115/68 (84) 96 12/01/16 16:01 97.3 85 19 99/79 (86) 99 12/01/16 14:57 16 12/01/16 14:27 16 12/01/16 14:00 16 12/01/16 12:23 97.6 96 19 120/75 (90) 96 12/01/16 08:00 94 12/01/16 07:59 97.7 89 18 121/83 (96) 93 12/01/16 06:00 20 12/01/16 04:00 97.4 91 16 122/89 (100) 95 12/01/16 00:00 97.6 101 17 128/85 (99) 96 11/30/16 22:11 103 11/30/16 21:19 20 Coded Allergies: No Known Allergies (Unverified , 11/27/16) Physical Exam Remarks R foot bandage clean, dry, intact Assessment & Plan A/P s/p ROSALES and bone biopsies R foot, Dr Solitario 11/28/16 Keep bandage clean, dry Plan to change bandage tomorrow. Discussed bone biopsy from distal aspect of medial column still showing up as osteomyelitis, but more proximal sample and calcaneus/lateral foot all negative. Recommend continuing IV abx per ID recommendations and allow bone to heal where hardware removed then attempt to splint patient in lieu of moving on with any kind of revision surgery at this time. Discussed with patient to splint the foot or brace may ultimately be definitive treatment to avoid amputation. NWB in boot R lower extremity. OK to remove boot when at rest. Dominic Solitario DPM Dec 01, 2016 20:51
[2016-12-02] VITALS (7 sets, daily range): BP systolic 111–132; BP diastolic 71–92; PULSE 84–101; RESP 16–18; TEMP 97.4–98.1; O2SAT 96–98
[2016-12-02] MEDS: VANCOMYCIN INJ 1,500 MG in SODIUM CHLORID 0.9% 500 ML INJ 500 ML IV SCH ×2 (03:55→15:10)
[2016-12-02] MEDS: oxyCODONE/ACETAMINOPHEN 10 MG/325 MG TAB PO PRN ×5 (03:55→21:36)
[2016-12-02] MEDS: PCA - TOTAL MG DILAUDID DELIVERED PER SHIFT OTHER SCH ×2 (05:41→14:00)
[2016-12-02 05:55] LABS: HEMATOCRIT 41.4 % (39.0-51.0); MEAN CELL VOLUME 97.5 FL (80.0-100.0); MEAN CORPUSCULAR HGB CONC 32.8 % (32.0-36.0); PLATELET COUNT 184 TH/MM3 (150-450); RED BLOOD COUNT 4.25 MIL/MM3 (4.50-5.90); RED CELL DISTRIBUTION WIDTH 20.1 % (11.6-17.2); REVIEW FLAG FINAL; WHITE BLOOD COUNT 7.1 TH/MM3 (4.0-11.0)
[2016-12-02 06:17] LABS: BICARBONATE 25.7 MEQ/L (21.0-32.0); POTASSIUM 3.7 MEQ/L (3.5-5.1)
[2016-12-02] MEDS: FUROSEMIDE 40 MG TAB PO SCH ×2 (08:37→21:36)
[2016-12-02] MEDS: DOCUSATE SODIUM 50 MG/SENNA 8.6 MG TAB PO SCH ×2 (08:37→21:33)
[2016-12-02] MEDS: LISINOPRIL 5 MG TAB PO SCH (08:37)
[2016-12-02] MEDS: CARVEDILOL 3.125 MG TAB PO SCH ×2 (08:37→21:36)
[2016-12-02] MEDS: LEVOTHYROXINE SODIUM 50 MCG TAB PO SCH (08:37)
[2016-12-02] MEDS: HYDROmorphone HCL PCA 6 MG/30 ML IV SCH (11:04)
--- NOTE | 2016-12-02 13:33 | HHI.FPPN ---
Subjective Remarks Patient was seen and examined this afternoon. He states he feels significantly better in regard to his pain. He has ambulated at least 100 yards about the hospital floor with surgical boot. He understands that he did have signs of infection on one of the bone biopsies and notes that Dr. Solitario said to continue antibiotics until cultures and ID recommendations allow for further planning. He denies fevers, chills, chest pain, shortness of breath. Last bowel movement today. (Trista Martinez MD R2) Objective Vitals Vital Signs Date Time Temp Pulse Resp B/P (MAP) Pulse Ox O2 Delivery O2 Flow Rate FiO2 12/02/16 12:03 97.5 91 18 123/78 (93) 96 12/02/16 11:09 Room Air 12/02/16 11:04 18 12/02/16 08:08 98.0 84 18 132/92 (105) 98 12/02/16 05:41 18 12/02/16 04:56 98.1 97 17 128/88 (101) 98 12/02/16 00:19 97.4 90 17 116/71 (86) 98 12/01/16 22:39 18 12/01/16 20:35 97.9 88 17 115/68 (84) 96 12/01/16 20:00 Room Air 12/01/16 20:00 96 12/01/16 16:01 97.3 85 19 99/79 (86) 99 12/01/16 14:57 16 12/01/16 14:27 16 12/01/16 14:00 16 I/O 12/01/16 12/01/16 12/01/16 12/02/16 12/02/16 12/02/16 07:00 15:00 23:00 07:00 15:00 23:00 Intake Total 640 ml 960 ml Output Total 1100 ml 1200 ml Balance -460 ml -240 ml Intake Oral 960 ml IV Total 640 ml Output Urine Total 1100 ml 1200 ml # Bowel Movements 1 (Trista Martinez MD R2) Result Diagram: 12/02/16 0540 12/02/16 0540 Imaging Last Impressions Lower Extremity CT 11/29/16 0000 Signed Impressions: Service Date/Time: Wednesday, November 30, 2016 05:19 - CONCLUSION: Evidence of multifocal hardware removal after hindfoot and midfoot arthrodesis. Medial greater than lateral hindfoot and mid foot soft tissues are indurated. Medial predominant multifocal bone cortical irregularity as above, some of which may be partly postsurgical but of concern for osteomyelitis of the talus, navicular, medial cuneiform and first metatarsal base in the proper clinical setting. Jose Tesfaye MD ADDENDUM: I don't see fracture or nonunion. Solid appearing bony bridging seen across the subtalar joint, the talonavicular and calcaneocuboid joints, the navicular/cuneiform and intercuneiform joints and en bloc bridging between the intermediate cuneiform, medial cuneiform and first and second metatarsal bases. Jose Tesfaye MD Foot X-Ray 11/28/16 0000 Signed Impressions: Service Date/Time: Monday, November 28, 2016 19:33 - CONCLUSION: Chronic change with a rounded metallic density seen over the lateral proximal mid foot. Jose Bolivar MD Objective Remarks GENERAL: Patient is a well-nourished, well-developed male sitting up eating lunch. SKIN: Warm and dry. No rashes or ecchymoses noted. There is a postsurgical boot on the right leg up to the knee. Normal appearing PICC line noted in the proximal right arm. HEAD: Atraumatic. Normocephalic. EYES: Pupils equal and round. EOMI. No scleral icterus or conjunctival injection. ENT: No nasal bleeding or discharge. Mucous membranes pink and moist. NECK: Trachea midline. No JVD. CARDIOVASCULAR: Regular rate and rhythm. Patient is wearing defibrillator vest. Auscultation does not reveal any murmurs. Improved lower maldonado edema. RESPIRATORY: No accessory muscle use. Clear to auscultation bilaterally without wheezes or rhonchi. Breath sounds equal bilaterally. GASTROINTESTINAL: Abdomen soft, non-tender, nondistended. Hepatic and splenic margins not palpable. Bowel sounds are normal in all 4 quadrants. MUSCULOSKELETAL: Left lower extremity is normal in appearance and has normal motor and strength functions. The right lower extremity is notable for warm toes with normal sensation distal to the boot, normal capillary refill bilaterally in the extremities. Able to wiggle toes in boot on right foot. NEUROLOGICAL: Awake and alert. No obvious cranial nerve deficits. Motor grossly within normal limits. 5/5 strength in the arms and legs. Normal gait. PSYCHIATRIC: Appropriate mood and affect; insight and judgment normal. Procedures Hardware removal right foot 11/28/[address] Solitario Medications and IVs Inpatient Medications Acetaminophen (Tylenol) 650 mg Q6H PRN PO PAIN SCALE 1 TO 2; Start 11/27/16 at 14:30 Acetaminophen/ Hydrocodone Bitart (Stevenson 5-325 Mg) 1 tab Q4H PRN PO PAIN SCALE 3 TO 5 Last administered on 11/29/16 05:48; Start 11/27/16 at 14:30; Stop 11/29/16 at 09:41; Status DC Acetaminophen/ Hydrocodone Bitart (Stevenson 10-325 Mg) 1 tab Q4H PRN PO PAIN SCALE 6 TO 10 Last administered on 11/28/16 20:22; Start 11/27/16 at 14:30; Stop 11/29/16 at 01:45; Status DC Bisacodyl (Dulcolax Supp) 10 mg DAILY PRN RECTAL SEVERE CONSITIPATION; Start 11/27/16 at 12:30 Carvedilol (Coreg) 3.125 mg BID PO Last administered on 12/02/16 08:37; Start 11/27/16 at 21:00 Furosemide (Lasix Inj) 40 mg ONCE ONCE IV PUSH Last administered on 11/27/16 15:27; Start 11/27/16 at 15:00; Stop 11/27/16 at 15:01; Status DC Furosemide (Lasix) 40 mg BID PO Last administered on 12/02/16 08:37; Start at 09:00 Hydromorphone HCl (Dilaudid CONTENT STRATEGIST Inj) 6 mg UNSCH IV Last administered on 11:04; Start 11/29/16 at 17:15 Hydromorphone HCl (Dilaudid Pf Inj) 1 mg ONCE ONCE IV PUSH Last administered on 11/29/16 12:38; Start 11/29/16 at 12:30; Stop 11/29/16 at 12:32; Status DC Lactulose (Lactulose Liq) 30 ml DAILY PRN PO SEVERE CONSITIPATION; Start at 12:30 Levothyroxine Sodium (Synthroid) 50 mcg DAILY PO Last administered on 08:37; Start 11/30/16 at 09:00 Lisinopril (Prinivil) 5 mg DAILY PO Last administered on 12/02/16 08:37; Start 11/28/16 at 09:00 Lorazepam (Ativan Inj) 0.5 mg UNSCH X1 PRN IV PUSH ANXIETY Last administered on 11/28/16 15:24; Start 11/28/16 at 15:15; Stop 11/28/16 at 23:59; Status DC Magnesium Hydroxide (Milk Of Magnesia Liq) 30 ml Q12H PRN PO MILD - MODERATE CONSTIPATION; Start 11/27/16 at 12:30 Miscellaneous Information SPECIFIC LAB TO BE DRAWN:VANCOMYCIN TROUGH DATE TO... ONCE ONCE .XX Last administered on 12/01/16 03:58; Start 12/01/16 at 03:45; Stop 12/01/16 at 03:46; Status DC Morphine Sulfate (Morphine Inj) 2 mg Q3H PRN IV PUSH BREAKTHROUGH PAIN Last administered on 11/29/16 09:17; Start 11/27/16 at 14:30; Stop 11/29/16 at 09:41 ; Status DC Naloxone HCl (Narcan Inj) 0.4 mg UNSCH PRN IV PUSH RESPIRATORY RATE LESS THAN 10; Start 11/29/16 at 17:15 Ondansetron HCl (Zofran Inj) 4 mg Q6H PRN IVP NAUSEA OR VOMITING; Start at 12:30 Oxycodone/ Acetaminophen (Percocet 5-325 Mg) 1 tab Q4H PRN PO PAIN SCALE 3 TO 5; Start 12/01/16 at 14:00 Oxycodone/ Acetaminophen (Percocet 10-325 Mg) 1 tab Q4H PRN PO PAIN SCALE 6 TO 10 Last administered on 12/02/16 13:20; Start 12/01/16 at 14:00 CONTENT STRATEGIST Dosage Infused (Pha) 1 Q8HR OTHER Last administered on 12/02/16 05:41; Start 11/29/16 at 17:15 Pharmacy Profile Note 0 ml @ 0 mls/hr UNSCH OTHER ; Start 11/29/16 at 13:45 Senna/Docusate Sodium (Yoanna-Colace) 1 tab BID PO Last administered on 08:37; Start 11/27/16 at 21:00 Sennosides (Senokot) 17.2 mg Q12H PRN PO MODERATE - SEVERE CONSTIPATION; Start 11/27/16 at 12:30 Sodium Chloride (NS Flush) 2 ml UNSCH PRN IV FLUSH FLUSH AFTER USING IV ACCESS Last administered on 11/27/16t 21:29; Start 11/27/16 at 10:30 Vancomycin HCl (Vancomycin Inj) 1,250 mg Q12HR IV ; Start 11/27/16 at 21:00; Stop 11/27/16 at 21:00; Status DC Vancomycin HCl 1250 mg/Sodium Chloride 262.5 ml @ 250 mls/hr Q12HR IV ; Start 11/27/16 at 21:00; Stop 11/27/16 at 21:00; Status DC Vancomycin HCl 1500 mg/Sodium Chloride 515 ml @ 250 mls/hr Q12H IV Last administered on 12/02/16 03:55; Start 11/29/16 at 16:00 Zolpidem Tartrate (Ambien) 5 mg HS PRN PO INSOMNIA; Start 11/27/16 at 21:00 (Trista Martinez MD R2) A/P Assessment and Plan 56-year-old male with a significant cardiac history including thyroid dysfunction, recurrent osteomyelitis of right foot, systolic heart failure with reduced EF 20-25% per report. He wears prescribed defibrillator vest. He was admitted 11/27/16 for scheduled hardware removal of the right foot with cultures pending. Surgery performed 11/28/16. Cultures negative, biopsy 03/02 showing osteomyelitis. Patient to remain under inpatient management until discharge planning complete, likely requiring long-term IV antibiotics Discharge Planning Pending surgical clearance from podiatry, pain control, infectious disease clearance Patient will need to follow up with his cost recovery technician and applications tester closely after discharge (Trista Martinez MD R2) Attending Attestation Patient seen and examined. Case reviewed and discussed Agree with plan of care as discussed with me and documented in the resident note. (Vijaya Gallardo MD) Problem List: (1) Osteomyelitis of right foot ICD Codes: M86.9 - Osteomyelitis, unspecified Status: Acute Plan: Osteomyelitis/Infected Hardware Right Foot Hardware removal 11/28/16 Per ID, patient to continue IV antibiotics for 6 weeks. Discharge planning initiated. Patient still requires significant pain medication, to monitor and continue to wean Hospital course: * Patient does not meet SIRS or sepsis criteria based on intake labs and vital signs * Status post vancomycin x 6 weeks via home health nursing. * Currently continuing Vancomycin IV Q12 (11/27-present, though was on Vancomycin for 6 weeks prior to admission) * On CONTENT STRATEGIST pump Dose 0.2mg, lock out 6 minutes, 1 hour limit 2mg , pain controlled - discontinue 12/02 * Increased Percocet to Q4 12/01 * Blood, wound cultures no growth to date * Pathology demonstrated osteonecrosis and right lateral foot, right calcaneus, proximal aspect medial column, distal aspect medial column. Features of acute osteomyelitis in distal aspect of medial column * Activity WBAT per podiatry, PT consulted * Records were requested from previous hospitalization, in paper chart (2) Infected hardware in right lower extremity ICD Codes: T84.7XXA - Infection and inflammatory reaction due to other internal orthopedic prosthetic devices, implants and grafts, initial encounter Status: Acute Plan: As above (3) Heart failure, systolic, chronic, etiology unknown ICD Codes: I50.22 - Chronic systolic (congestive) heart failure Status: Chronic Plan: CHF with reduced EF Compensated. Per patient was recently EF is 25%. He states it was as low as 10% back in May 2016. Cardiology consulted for medical clearance at admission. Caution with IV fluids given reportedly low EF. Outpatient cost recovery technician is Dr. Betts * EKG on admission showing LV conduction delay * Patient is on anastrozole, unclear why patient will be on this medication, he states it is "for his cholesterol", will hold at this time. * Continue ROBB, BB, Lasix (4) CHF (congestive heart failure), NYHA class II ICD Codes: I50.9 - Heart failure, unspecified Status: Chronic Plan: As above (5) Atrial fibrillation, currently in sinus rhythm ICD Codes: Z86.79 - Personal history of other diseases of the circulatory system Status: Chronic Plan: Rate controlled. On Eliquis, will hold given procedure 11/28, place on telemetry. We'll restart 12/02 Restart once cleared to do so by podiatry (6) Thyroid disorder ICD Codes: E07.9 - Disorder of thyroid, unspecified Status: Chronic Plan: Unclear history from patient. Patient appears to be on levothyroxine, Angie Thyroid, and? Iodine though he is unsure. TSH is within normal limits-->will restart levothyroxine. If patient has any acute symptoms suggesting thyroid dysfunction is active, will reassess. (7) Hypoglycemia ICD Codes: E16.2 - Hypoglycemia, unspecified Status: Resolved Plan: Noted. Patient is not diabetic. Patient is asymptomatic. He is eating. We 'll continue to monitor, if ever symptomatic will initiate Hypoglycemic protocol and initiate further workup (8) Fluids/Electrolytes/Nutrition/Prophylaxis Status: Acute Plan: PRN Medications Vasotec 1.25mg for BP >180/110 Stool softeners and other constipation medications order per protocol Fluids/Electrolytes/Nutrition/Prophylaxis Fluids: tolerating PO Electrolytes: monitor and replete as needed Nutrition: Heart healthy diet DVT Prophylaxis: Early ambulation. On Plavix at home, restarting 12/02. SCDs on LLE while immobile. GI Prophylaxis: None indicated at this time (Trista Martinez MD R2) Trista Martinez MD R2 Dec 02, 2016 13:33 Vijaya Gallardo MD Dec 03, 2016 13:30
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
--- NOTE | 2016-12-02 14:07 | HHI.FF ---
cc: Marco Snider MD, Dr Infusion Therapy Location of Infusion Therapy: Home Health Care IV Infusion Order Patient Information Patient Weight 117 kg Diagnosis: Diagnosis MRSA Osteo R foot, S/P removal of hardware Coded Allergies: No Known Allergies (Unverified , 11/27/16) Administer Medication Vancomycin 1.5 grams IV q 12 hours Stop Treatment: Jan 07, 2017 Additional Information Venous access: PICC Line Additional Instructions [x] Peripheral flush and dressing changes per protocol [x] Implanted port and central bottle line worker: * Implanted port: 10 ml Normal Saline followed by 5 ml Heparin 100 units/ml Heparin flush after each use and monthly to maintain. [] May leave port accessed during therapy. [] May leave peripheral site accessed for duration of therapy. [x] If patient has SOB or respiratory distress, check oxygen saturation. If less than 90% or clinical signs of respiratory distress, administer oxygen at 2 L/min. via nasal cannula and notify physician. [x] Anaphylaxis/Reaction orders: * Stop infusion. * Keep IV line open with saline flush. * Notify physician. * Monitor vital signs every 15 minutes until symptoms resolve. * Check Oxygen saturation; Oxygen at 2 L/min. via nasal cannula if less than 90% or clinical signs of respiratory distress. * Administer diphenhydramine (Benadryl) 25 mg IV STAT, (unless patient has received as pre-med). May repeat once, if necessary. * Solu-Cortef 250 mg IVP over 30-60 seconds, use 100 mg vials for each dissolution. * Epinephrine (1mg/1 ml) 0.3 mg subcutaneously or IVP now with any signs of respiratory distress. * Check with physician for new additional pre-med orders if patient is re- challenged or re-treated. [x] May remove PICC line when treatment complete, after confirming with Physician. [x] If the patient is admitted to the hospital, the ED, or transferred via [facility] , complete transfer form including medication reconciliation order sheet. Laboratory Tests Weekly Labs: CBC w/diff, Creatinine, LFT's (Hepatic function test), Vancomycin Trough (Labs every Monday - copy to Dr Snider and to me) Additional Information Please have patient call Dr Snider office to schedule ID followup appointment - give Dr Snider's office number Corie Ohara MD Dec 02, 2016 14:07
[2016-12-02] MEDS ORDERED: HYDROmorphone HCL PF 2 MG/ML VIAL IV PUSH PRN (17:00)
--- NOTE | 2016-12-02 18:16 | PD.POD ---
Subjective Podiatric Problems s/p ROSALES and bone biopsies R foot, Dr Solitario 11/28/16 Past Med/Surg/Social History Social History Smoking Status: Former Smoker Objective Vital Signs Vital Signs Date Time Temp Pulse Resp B/P (MAP) Pulse Ox O2 Delivery O2 Flow Rate FiO2 12/02/16 16:01 97.5 91 17 111/72 (85) 97 12/02/16 12:03 97.5 91 18 123/78 (93) 96 12/02/16 11:09 Room Air 12/02/16 11:04 18 12/02/16 08:08 98.0 84 18 132/92 (105) 98 12/02/16 05:41 18 12/02/16 04:56 98.1 97 17 128/88 (101) 98 12/02/16 00:19 97.4 90 17 116/71 (86) 98 12/01/16 22:39 18 12/01/16 20:35 97.9 88 17 115/68 (84) 96 12/01/16 20:00 Room Air 12/01/16 20:00 96 Coded Allergies: No Known Allergies (Unverified , 11/27/16) Assessment & Plan A/P s/p ROSALES and bone biopsies R foot, Dr Solitario 11/28/16 Keep bandage clean, dry until seen in clinic next Monday. Changed bandage today. Discussed bone biopsy from distal aspect of medial column still showing up as osteomyelitis, but more proximal sample and calcaneus/lateral foot all negative. Recommend continuing IV abx per ID recommendations and allow bone to heal where hardware removed then attempt to splint patient in lieu of moving on with any kind of revision surgery at this time. Discussed with patient to splint the foot or brace may ultimately be definitive treatment to avoid amputation. NWB in boot R lower extremity. OK to remove boot when at rest. DC ok from podiatry standpoint Dominic Solitario DPM Dec 02, 2016 18:16
[2016-12-02] MEDS: APIXABAN 5 MG TABLET PO SCH (21:36)
[2016-12-03] VITALS (7 sets, daily range): BP systolic 101–147; BP diastolic 58–98; PULSE 85–105; RESP 18–21; TEMP 97.3–98.1; O2SAT 9–99
[2016-12-03] MEDS: VANCOMYCIN INJ 1,500 MG in SODIUM CHLORID 0.9% 500 ML INJ 500 ML IV SCH ×2 (02:53→15:37)
[2016-12-03] MEDS: oxyCODONE/ACETAMINOPHEN 10 MG/325 MG TAB PO PRN ×5 (02:53→20:20)
[2016-12-03 05:32] LABS: AUTOMATED NEUTROPHIL # 3.6 TH/MM3 (1.8-7.7); BASOPHIL # 0.1 TH/MM3 (0-0.2); EOSINOPHIL % 0.8 % (0.0-4.0); HEMATOCRIT 37.8 % (39.0-51.0); HEMO FLAGS DIFF FINAL; LYMPHOCYTE # 1.5 TH/MM3 (1.0-4.8); MEAN CELL VOLUME 96.4 FL (80.0-100.0); MEAN CORPUSCULAR HEMOGLOBIN 31.8 PG (27.0-34.0); MONO % 14.3 % (0.0-8.0); NEUT % 58.9 % (16.0-70.0); PLATELET COUNT 166 TH/MM3 (150-450); RED BLOOD COUNT 3.93 MIL/MM3 (4.50-5.90); RED CELL DISTRIBUTION WIDTH 19.7 % (11.6-17.2); WHITE BLOOD COUNT 6.2 TH/MM3 (4.0-11.0)
[2016-12-03 05:39] LABS: BICARBONATE 25.2 MEQ/L (21.0-32.0); POTASSIUM 3.5 MEQ/L (3.5-5.1)
[2016-12-03] MEDS: LEVOTHYROXINE SODIUM 50 MCG TAB PO SCH (09:00)
[2016-12-03] MEDS: DOCUSATE SODIUM 50 MG/SENNA 8.6 MG TAB PO SCH ×2 (10:09→20:20)
[2016-12-03] MEDS: FUROSEMIDE 40 MG TAB PO SCH ×2 (10:09→20:20)
[2016-12-03] MEDS: CARVEDILOL 3.125 MG TAB PO SCH ×2 (10:09→20:20)
[2016-12-03] MEDS: LISINOPRIL 5 MG TAB PO SCH (10:09)
[2016-12-03] MEDS: APIXABAN 5 MG TABLET PO SCH ×2 (10:09→20:20)
[2016-12-03] MEDS: MAGNESIUM HYDROXIDE SUSP 30 ML CUP PO PRN (10:16)
[2016-12-03] MEDS ORDERED: OXYC1TAB36 PO (11:19)
--- NOTE | 2016-12-03 12:57 | HHI.FF ---
Face to Face Verification Diagnosis: (1) Infected hardware in left lower extremity (2) Cardiomyopathy (3) Heart failure, systolic, chronic, etiology unknown (4) Osteomyelitis of right foot Physical Therapy Order: Evaluate and Treat Home Health Nursing Order: Medical education Medication education-adverse effect IV medication administration I have seen patient Rudy Cid on 12/03/16. My clinical findings support the need for the requested home health care services because: Ltd mobility - disease progression Patient has SOB Deconditioned w/ increased weakness Limited ability to care for self High risk of falls Infection w/ risk of complications Injectable med education/admin I certify that my clinical findings support that this patient is homebound because: Unsteady gait/balance Unsafe to leave home unassisted Poor cardiac reserve Trista Martinez MD R2 Dec 03, 2016 12:57 Vijaya Gallardo MD Dec 03, 2016 13:30
--- NOTE | 2016-12-03 14:27 | HHI.FPPN ---
Subjective Remarks Patient was seen and examined this more. He states his pain is well-controlled on by mouth medication. He is not ready to go home because he is worried that home health will not be set up. Ambulating without difficulty, minor pain noted in the ankle but improving. Ears, chills, nausea, vomiting, abdominal pain. Has had bowel movements since procedure. Objective Vitals Vital Signs Date Time Temp Pulse Resp B/P (MAP) Pulse Ox O2 Delivery O2 Flow Rate FiO2 12/03/16 12:00 97.6 89 20 131/91 (104) 99 12/03/16 08:00 97.3 86 18 147/98 (114) 99 12/03/16 08:00 105 12/03/16 07:15 Room Air 12/03/16 04:00 97.5 85 20 127/ 9 12/03/16 00:00 98.1 93 20 120/74 (89) 98 12/02/16 20:00 98.1 100 16 119/89 (99) 98 12/02/16 20:00 Room Air 12/02/16 20:00 101 12/02/16 16:01 97.5 91 17 111/72 (85) 97 I/O 12/02/16 12/02/16 12/02/16 12/03/16 12/03/16 12/03/16 06:59 14:59 22:59 06:59 14:59 22:59 Intake Total 515 ml 1235 ml 1595 ml Output Total 1000 ml 600 ml Balance 515 ml 235 ml 995 ml Intake Oral 720 ml 1080 ml IV Total 515 ml 515 ml 515 ml Output Urine Total 1000 ml 600 ml # Bowel Movements 1 Result Diagram: 12/03/16 0505 12/03/16 0505 Imaging Last Impressions Lower Extremity CT 11/29/16 0000 Signed Impressions: Service Date/Time: Wednesday, November 30, 2016 05:19 - CONCLUSION: Evidence of multifocal hardware removal after hindfoot and midfoot arthrodesis. Medial greater than lateral hindfoot and mid foot soft tissues are indurated. Medial predominant multifocal bone cortical irregularity as above, some of which may be partly postsurgical but of concern for osteomyelitis of the talus, navicular, medial cuneiform and first metatarsal base in the proper clinical setting. Jose Tesfaye MD ADDENDUM: I don't see fracture or nonunion. Solid appearing bony bridging seen across the subtalar joint, the talonavicular and calcaneocuboid joints, the navicular/cuneiform and intercuneiform joints and en bloc bridging between the intermediate cuneiform, medial cuneiform and first and second metatarsal bases. Jose Tesfaye MD Foot X-Ray 11/28/16 0000 Signed Impressions: Service Date/Time: Monday, November 28, 2016 19:33 - CONCLUSION: Chronic change with a rounded metallic density seen over the lateral proximal mid foot. Jose Bolivar MD Objective Remarks GENERAL: Patient is a well-nourished, well-developed male sitting up eating lunch. SKIN: Warm and dry. No rashes or ecchymoses noted. There is a postsurgical boot on the right leg up to the knee. Normal appearing PICC line noted in the proximal right arm. HEAD: Atraumatic. Normocephalic. EYES: Pupils equal and round. EOMI. No scleral icterus or conjunctival injection. ENT: No nasal bleeding or discharge. Mucous membranes pink and moist. NECK: Trachea midline. No JVD. CARDIOVASCULAR: Regular rate and rhythm. Patient is wearing defibrillator vest. Auscultation does not reveal any murmurs. No lower extremity edema. RESPIRATORY: No accessory muscle use. Clear to auscultation bilaterally without wheezes or rhonchi. Breath sounds equal bilaterally. GASTROINTESTINAL: Abdomen soft, non-tender, nondistended. Hepatic and splenic margins not palpable. Bowel sounds are normal in all 4 quadrants. MUSCULOSKELETAL: Left lower extremity is normal in appearance and has normal motor and strength functions. The right lower extremity is notable for warm toes with normal sensation distal to the boot, normal capillary refill bilaterally in the extremities. Able to wiggle toes in boot on right foot. NEUROLOGICAL: Awake and alert. No obvious cranial nerve deficits. Motor grossly within normal limits. 5/5 strength in the arms and legs. Normal gait. PSYCHIATRIC: Appropriate mood and affect; insight and judgment normal. Procedures Hardware removal right foot 11/28/[address] Solitario Urinary Catheter: No Vascular Central Line Catheter: No A/P Assessment and Plan 56-year-old male with a significant cardiac history including thyroid dysfunction, recurrent osteomyelitis of right foot, systolic heart failure with reduced EF 20-25% per report. He wears prescribed defibrillator vest. He was admitted 11/27/16 for scheduled hardware removal of the right foot with cultures pending. Surgery performed 11/28/16. Cultures negative, biopsy 03/02 showing osteomyelitis. He is medically clear for discharge 12/03. Discharge planning in progress per CM, and he will need his PCP to approve IV infusion prior to discharge. Discharge Planning Cleared from podiatry standpoint. Clear from infectious disease standpoint. He is to continue IV vancomycin infusions twice a day until clear. He will be seeing Dr. Snider (ID) after discharge Patient will also need to follow up with his motorcycle racer and underwriting analyst closely after discharge Problem List: (1) Osteomyelitis of right foot ICD Codes: M86.9 - Osteomyelitis, unspecified Status: Acute Plan: Osteomyelitis/Infected Hardware Right Foot Hardware removal 11/28/16 Per ID, patient to continue IV antibiotics for 6 weeks. Discharge planning initiated. Tolerating by mouth pain medication well Hospital course: * Patient does not meet SIRS or sepsis criteria based on intake labs and vital signs * Status post vancomycin x 6 weeks via home health nursing. * Currently continuing Vancomycin IV Q12 (11/27-present, though was on Vancomycin for 6 weeks prior to admission) * On POWDER WORKER TNT pump Dose 0.2mg, lock out 6 minutes, 1 hour limit 2mg , pain controlled - discontinued 12/02 * Increased Percocet to Q4 12/01, working well * Blood, wound cultures no growth to date * Pathology demonstrated osteonecrosis and right lateral foot, right calcaneus, proximal aspect medial column, distal aspect medial column. Features of acute osteomyelitis in distal aspect of medial column * Activity WBAT per podiatry, PT consulted * Records were requested from previous hospitalization, in paper chart (2) Infected hardware in right lower extremity ICD Codes: T84.7XXA - Infection and inflammatory reaction due to other internal orthopedic prosthetic devices, implants and grafts, initial encounter Status: Acute Plan: As above (3) Heart failure, systolic, chronic, etiology unknown ICD Codes: I50.22 - Chronic systolic (congestive) heart failure Status: Chronic Plan: CHF with reduced EF Compensated. Per patient was recently EF is 25%. He states it was as low as 10% back in May 2016. Cardiology consulted for medical clearance at admission. Caution with IV fluids given reportedly low EF. Outpatient motorcycle racer is Dr. Betts * EKG on admission showing LV conduction delay * Patient is on anastrozole, unclear why patient will be on this medication, he states it is "for his cholesterol", will hold at this time. * Continue ROBB, BB, Lasix (4) CHF (congestive heart failure), NYHA class II ICD Codes: I50.9 - Heart failure, unspecified Status: Chronic Plan: As above (5) Atrial fibrillation, currently in sinus rhythm ICD Codes: Z86.79 - Personal history of other diseases of the circulatory system Status: Chronic Plan: Rate controlled. On Eliquis, will hold given procedure 11/28, place on telemetry. We'll restart 12/02 Restart once cleared to do so by podiatry (6) Thyroid disorder ICD Codes: E07.9 - Disorder of thyroid, unspecified Status: Chronic Plan: Unclear history from patient. Patient appears to be on levothyroxine, [place] Thyroid, and? Iodine though he is unsure. TSH is within normal limits-->will restart levothyroxine If patient has any acute symptoms suggesting thyroid dysfunction is active, will reassess. Patient is a follows PCP to reconcile medications for thyroid disorder. (7) Fluids/Electrolytes/Nutrition/Prophylaxis Status: Acute Plan: PRN Medications Vasotec 1.25mg for BP >180/110 Stool softeners and other constipation medications order per protocol Fluids/Electrolytes/Nutrition/Prophylaxis Fluids: tolerating PO Electrolytes: monitor and replete as needed Nutrition: Heart healthy diet DVT Prophylaxis: Early ambulation. On Plavix at home, restarted 12/02. SCDs on LLE while immobile. GI Prophylaxis: None indicated at this time Trista Martinez MD R2 Dec 03, 2016 14:27
[2016-12-04] VITALS (7 sets, daily range): BP systolic 121–139; BP diastolic 82–93; PULSE 81–101; RESP 16–20; TEMP 97.5–98.3; O2SAT 98–100
[2016-12-04] MEDS: oxyCODONE/ACETAMINOPHEN 10 MG/325 MG TAB PO PRN ×6 (00:11→20:37)
[2016-12-04] MEDS: VANCOMYCIN INJ 1,500 MG in SODIUM CHLORID 0.9% 500 ML INJ 500 ML IV SCH ×2 (04:02→16:12)
[2016-12-04 07:08] LABS: AUTOMATED NEUTROPHIL # 3.5 TH/MM3 (1.8-7.7); BASOPHIL # 0.1 TH/MM3 (0-0.2); EOSINOPHIL # 0.1 TH/MM3 (0-0.4); HEMATOCRIT 39.2 % (39.0-51.0); HEMO FLAGS DIFF FINAL; LYMPHOCYTE # 1.6 TH/MM3 (1.0-4.8); MEAN CELL VOLUME 95.9 FL (80.0-100.0); MEAN CORPUSCULAR HEMOGLOBIN 31.5 PG (27.0-34.0); MEAN CORPUSCULAR HGB CONC 32.9 % (32.0-36.0); MONO % 14.9 % (0.0-8.0); NEUT % 57.1 % (16.0-70.0); PLATELET COUNT 180 TH/MM3 (150-450); RED BLOOD COUNT 4.09 MIL/MM3 (4.50-5.90); RED CELL DISTRIBUTION WIDTH 19.4 % (11.6-17.2); WHITE BLOOD COUNT 6.1 TH/MM3 (4.0-11.0)
[2016-12-04 07:36] LABS: BICARBONATE 25.7 MEQ/L (21.0-32.0); POTASSIUM 3.4 MEQ/L (3.5-5.1)
[2016-12-04] MEDS: DOCUSATE SODIUM 50 MG/SENNA 8.6 MG TAB PO SCH ×2 (08:38→20:36)
[2016-12-04] MEDS: APIXABAN 5 MG TABLET PO SCH ×2 (08:38→20:37)
[2016-12-04] MEDS: LISINOPRIL 5 MG TAB PO SCH (08:38)
[2016-12-04] MEDS: FUROSEMIDE 40 MG TAB PO SCH ×2 (08:38→20:37)
[2016-12-04] MEDS: CARVEDILOL 3.125 MG TAB PO SCH ×2 (08:38→20:36)
[2016-12-04] MEDS: LEVOTHYROXINE SODIUM 50 MCG TAB PO SCH (08:39)
[2016-12-04] MEDS: MAGNESIUM HYDROXIDE SUSP 30 ML CUP PO PRN (08:42)
--- NOTE | 2016-12-04 10:56 | HHI.FPPN ---
Subjective Remarks Patient seen and examined today. States his penis foot is well controlled with the Percocet every 4 hours. States is eager and prepared to go home. No nausea, vomiting, fever, chills, bone pain, chest pain, respiratory difficulty. Does note some abdominal bloating however he recently received some milk of magnesia and believes that's going to help him. (Hilario Kumar MD R1) Objective Vitals Vital Signs Date Time Temp Pulse Resp B/P (MAP) Pulse Ox O2 Delivery O2 Flow Rate FiO2 12/04/16 08:00 95 12/04/16 08:00 98.2 89 17 137/83 (101) 98 12/04/16 07:15 Room Air 12/04/16 04:00 Room Air 12/04/16 04:00 97.9 81 18 128/92 (104) 98 12/04/16 00:00 98.2 91 20 123/82 (96) 100 12/04/16 00:00 Room Air 12/03/16 20:32 Room Air 12/03/16 20:32 97.7 96 21 101/76 (84) 98 12/03/16 20:00 97.7 85 18 114/58 (76) 98 12/03/16 20:00 87 12/03/16 16:00 97.6 93 20 142/98 (113) 98 12/03/16 12:00 97.6 89 20 131/91 (104) 99 I/O 12/03/16 12/03/16 12/03/16 12/04/16 12/04/16 12/04/16 07:00 15:00 23:00 07:00 15:00 23:00 Intake Total 1595 ml 1485 ml Output Total 600 ml 1650 ml Balance 995 ml -165 ml Intake Oral 1080 ml 960 ml IV Total 515 ml 525 ml Output Urine Total 600 ml 1650 ml # Voids 4 2 # Bowel Movements 1 1 (Hilario Kumar MD R1) Result Diagram: 12/04/16 0635 12/04/16 0635 Objective Remarks GENERAL: Patient is a well-nourished, well-developed male sitting up eating. SKIN: Warm and dry. No rashes or ecchymoses noted. There is a postsurgical boot on the right leg up to the knee. Normal appearing PICC line noted in the proximal right arm. HEAD: Atraumatic. Normocephalic. EYES: Pupils equal and round. EOMI. No scleral icterus or conjunctival injection. ENT: No nasal bleeding or discharge. Mucous membranes pink and moist. NECK: Trachea midline. No JVD. CARDIOVASCULAR: Regular rate and rhythm. Patient is wearing defibrillator vest. Auscultation does not reveal any murmurs. No lower extremity edema. RESPIRATORY: No accessory muscle use. Clear to auscultation bilaterally without wheezes or rhonchi. Breath sounds equal bilaterally. GASTROINTESTINAL: Abdomen soft, non-tender, nondistended. Hepatic and splenic margins not palpable. Bowel sounds are normal in all 4 quadrants. MUSCULOSKELETAL: Left lower extremity is normal in appearance and has normal motor and strength functions. The right lower extremity is notable for warm toes with normal sensation distal to the boot, normal capillary refill bilaterally in the extremities. Able to wiggle toes in boot on right foot. NEUROLOGICAL: Awake and alert. No obvious cranial nerve deficits. Motor grossly within normal limits. 5/5 strength in the arms and legs. Normal gait. PSYCHIATRIC: Appropriate mood and affect; insight and judgment normal. Procedures Hardware removal right foot 11/28/[address] Solitario (Hilario Kumar MD R1) A/P Assessment and Plan 56-year-old male with a significant cardiac history including thyroid dysfunction, recurrent osteomyelitis of right foot, systolic heart failure with reduced EF 20-25% per report. He wears prescribed defibrillator vest. He was admitted 11/27/16 for scheduled hardware removal of the right foot with cultures pending. Surgery performed 11/28/16. Cultures negative, biopsy 03/02 showing osteomyelitis. He is medically clear for discharge 12/03. Discharge planning in progress per CM, and he will need his PCP to approve IV infusion prior to discharge. Discharge Planning Cleared from podiatry standpoint. Clear from infectious disease standpoint. He is to continue IV vancomycin infusions twice a day until clear. He will be seeing Dr. Snider (ID) after discharge Patient will also need to follow up with his grade setter and handkerchief presser closely after discharge (Hilario Kumar MD R1) Attending Attestation Patient seen and examined with Dr. Kumar. Case reviewed and discussed Agree with plan of care as discussed with me and documented in the resident note. Discharge planning. Awaiting [employer] approval of IV infusion, [facility] arrangements, Per CM. (Vijaya Gallardo MD) Problem List: (1) Osteomyelitis of right foot ICD Codes: M86.9 - Osteomyelitis, unspecified Status: Acute Plan: Osteomyelitis/Infected Hardware Right Foot Hardware removal 11/28/16 Per ID, patient to continue IV antibiotics for 6 weeks. Discharge planning initiated. Tolerating by mouth pain medication well Hospital course: * Patient does not meet SIRS or sepsis criteria based on intake labs and vital signs * Status post vancomycin x 6 weeks via home health nursing. * Currently continuing Vancomycin IV Q12 (11/27-present, though was on Vancomycin for 6 weeks prior to admission) * On BRIDGE IRONWORKER HELPER pump Dose 0.2mg, lock out 6 minutes, 1 hour limit 2mg , pain controlled - discontinued 12/02 * Increased Percocet to Q4 12/01, working well * Blood, wound cultures no growth to date * Pathology demonstrated osteonecrosis and right lateral foot, right calcaneus, proximal aspect medial column, distal aspect medial column. Features of acute osteomyelitis in distal aspect of medial column * Activity WBAT per podiatry, PT consulted * Records were requested from previous hospitalization, in paper chart (2) Infected hardware in right lower extremity ICD Codes: T84.7XXA - Infection and inflammatory reaction due to other internal orthopedic prosthetic devices, implants and grafts, initial encounter Status: Acute Plan: As above (3) Heart failure, systolic, chronic, etiology unknown ICD Codes: I50.22 - Chronic systolic (congestive) heart failure Status: Chronic Plan: CHF with reduced EF Compensated. Per patient was recently EF is 25%. He states it was as low as 10% back in May 2016. Cardiology consulted for medical clearance at admission. Caution with IV fluids given reportedly low EF. Outpatient grade setter is Dr. Betts * EKG on admission showing LV conduction delay * Patient is on anastrozole, unclear why patient will be on this medication, he states it is "for his cholesterol", will hold at this time. * Continue ROBB, BB, Lasix (4) CHF (congestive heart failure), NYHA class II ICD Codes: I50.9 - Heart failure, unspecified Status: Chronic Plan: As above (5) Leg swelling ICD Codes: M79.89 - Other specified soft tissue disorders Status: Acute Plan: Notes leg swelling on left side. Nontender, no erythema, good pulses. -F/U US left leg for R/O DVT -On eliquis -Likely secondary to current sedentary situation (6) Atrial fibrillation, currently in sinus rhythm ICD Codes: Z86.79 - Personal history of other diseases of the circulatory system Status: Chronic Plan: Rate controlled. On Eliquis, temporarily held prior to procedure 11/28, place on telemetry. Restarted 12/02 (7) Thyroid disorder ICD Codes: E07.9 - Disorder of thyroid, unspecified Status: Chronic Plan: Unclear history from patient. Patient appears to be on levothyroxine, [place] Thyroid, and? Iodine though he is unsure. TSH is within normal limits--> restarted levothyroxine If patient has any acute symptoms suggesting thyroid dysfunction is active, will reassess. Patient is a follows PCP to reconcile medications for thyroid disorder. (8) Fluids/Electrolytes/Nutrition/Prophylaxis Status: Acute Plan: PRN Medications Vasotec 1.25mg for BP >180/110 Stool softeners and other constipation medications order per protocol Fluids/Electrolytes/Nutrition/Prophylaxis Fluids: tolerating PO Electrolytes: monitor and replete as needed Nutrition: Heart healthy diet DVT Prophylaxis: Early ambulation. On Plavix at home, restarted 12/02. SCDs on LLE while immobile. GI Prophylaxis: None indicated at this time (Hilario Kumar MD R1) Hilario Kumar MD R1 Dec 04, 2016 10:56 Vijaya Gallardo MD Dec 05, 2016 12:22
--- NOTE | 2016-12-04 11:58 | PD.POD ---
Subjective Podiatric Problems s/p ROSALES and bone biopsies R foot, Dr Solitario 11/28/16 Past Med/Surg/Social History Social History Smoking Status: Former Smoker Objective Vital Signs Vital Signs Date Time Temp Pulse Resp B/P (MAP) Pulse Ox O2 Delivery O2 Flow Rate FiO2 12/04/16 08:00 95 12/04/16 08:00 98.2 89 17 137/83 (101) 98 12/04/16 07:15 Room Air 12/04/16 04:00 Room Air 12/04/16 04:00 97.9 81 18 128/92 (104) 98 12/04/16 00:00 98.2 91 20 123/82 (96) 100 12/04/16 00:00 Room Air 12/03/16 20:32 Room Air 12/03/16 20:32 97.7 96 21 101/76 (84) 98 12/03/16 20:00 97.7 85 18 114/58 (76) 98 12/03/16 20:00 87 12/03/16 16:00 97.6 93 20 142/98 (113) 98 12/03/16 12:00 97.6 89 20 131/91 (104) 99 Coded Allergies: No Known Allergies (Unverified , 11/27/16) Assessment & Plan A/P s/p ROSALES and bone biopsies R foot, Dr Solitario 11/28/16 Keep bandage clean, dry until seen in clinic next Monday. Changed bandage today. Discussed bone biopsy from distal aspect of medial column still showing up as osteomyelitis, but more proximal sample and calcaneus/lateral foot all negative. Recommend continuing IV abx per ID recommendations and allow bone to heal where hardware removed then attempt to splint patient in lieu of moving on with any kind of revision surgery at this time. Discussed with patient to splint the foot or brace may ultimately be definitive treatment to avoid amputation. NWB in boot R lower extremity. OK to remove boot when at rest. DC ok from podiatry standpoint OK to restart blood thinners. Dominic Solitario DPM Dec 04, 2016 11:57
[2016-12-04] MEDS ORDERED: POTASSIUM CHLORIDE 20 MEQ CONTROLLED RELEASE TAB PO ONE (12:30)
--- NOTE | 2016-12-04 14:01 | RADRPT ---
EXAM DATE/TIME: 12/04/2016 12:42 [place] COMPARISON: No previous studies available for comparison. INDICATIONS : Left leg swelling. MEDICAL HISTORY : Benign prostatic hyperplasia, (BPH) Hypothyroidism. Congestive heart failure. Atrial fibrillat ion. Hypertension. SURGICAL HISTORY : Hernia repair. Right foot surgery. C7 fusion. Pins in right arm. L4-5 S1 fusion. Left shoulder. Left meniscus. ENCOUNTER: Initial ACUITY: 4 - 6 days PAIN SCORE: 5/10 LOCATION: Left leg. TECHNIQUE: Venous ultrasound of the leg was performed from the inguinal ligament to the proximal calf. Real-marvel e, color Doppler and spectral tracing, compression and augmentation techniques were used. FINDINGS: There is normal compressibility of the deep venous system from the inguinal region to the proximal ca lf. No echogenic clot is seen in the lumen of the common femoral, femoral, popliteal, and posterior tibial veins. There is a normal response of the venous system to proximal and distal augmentation an d respiration. CONCLUSION: 1. No DVT identified. Ashok Gonzalez MD on December 04, 2016 at 13:58 Board Certified Radiologist. This report was verified electronically.
[2016-12-04] MEDS: SODIUM CHLORIDE 0.9% FLUSH 10 ML FLUSH IV FLUSH PRN (20:37)
[2016-12-05] VITALS: BP 110/85; PULSE 95; RESP 16; TEMP 97.3; O2SAT 100
[2016-12-05] MEDS: oxyCODONE/ACETAMINOPHEN 10 MG/325 MG TAB PO PRN ×4 (00:23→14:15)
[2016-12-05 04:00] VITALS: BP 119/79; PULSE 70; RESP 18; TEMP 98.6; O2SAT 99
[2016-12-05] MEDS: VANCOMYCIN INJ 1,500 MG in SODIUM CHLORID 0.9% 500 ML INJ 500 ML IV SCH (04:45)
[2016-12-05 05:08] LABS: HEMATOCRIT 38.8 % (39.0-51.0); MEAN CELL VOLUME 96.7 FL (80.0-100.0); MEAN CORPUSCULAR HEMOGLOBIN 31.6 PG (27.0-34.0); MEAN CORPUSCULAR HGB CONC 32.7 % (32.0-36.0); PLATELET COUNT 166 TH/MM3 (150-450); RED BLOOD COUNT 4.01 MIL/MM3 (4.50-5.90); RED CELL DISTRIBUTION WIDTH 19.5 % (11.6-17.2); REVIEW FLAG FINAL
[2016-12-05 05:39] LABS: BICARBONATE 28.2 MEQ/L (21.0-32.0); POTASSIUM 3.6 MEQ/L (3.5-5.1)
[2016-12-05 08:00] VITALS: PULSE 100
[2016-12-05 08:01] VITALS: BP 129/92; PULSE 86; RESP 19; TEMP 97.6; O2SAT 99
[2016-12-05] MEDS: LEVOTHYROXINE SODIUM 50 MCG TAB PO SCH (09:23)
[2016-12-05] MEDS: FUROSEMIDE 40 MG TAB PO SCH (09:23)
[2016-12-05] MEDS: LISINOPRIL 5 MG TAB PO SCH (09:24)
[2016-12-05] MEDS: APIXABAN 5 MG TABLET PO SCH (09:24)
[2016-12-05] MEDS: DOCUSATE SODIUM 50 MG/SENNA 8.6 MG TAB PO SCH (09:24)
[2016-12-05] MEDS: CARVEDILOL 3.125 MG TAB PO SCH (09:24)
--- NOTE | 2016-12-05 09:44 | HHI.FPPN ---
Subjective Remarks Patient was seen and examined this morning. He is feeling ready to go home. His pain is well-controlled on PO meds. He is ambulating without difficulty. BMs regular. CM working to get discharge set up-IV antibiotics,home health, etc. Objective Vitals Vital Signs Date Time Temp Pulse Resp B/P (MAP) Pulse Ox O2 Delivery O2 Flow Rate FiO2 12/05/16 08:01 97.6 86 19 129/92 (104) 99 12/05/16 04:00 98.6 70 18 119/79 (92) 99 12/05/16 00:00 97.3 95 16 110/85 (93) 100 12/05/16 00:00 Room Air 12/04/16 20:00 101 12/04/16 20:00 Room Air 12/04/16 20:00 98.3 94 16 132/89 (103) 99 12/04/16 19:27 98 Nasal Cannula 2.00 12/04/16 16:00 97.5 100 18 139/93 (108) 100 12/04/16 12:00 97.6 100 18 121/84 (96) 98 I/O 12/04/16 12/04/16 12/04/16 12/05/16 12/05/16 12/05/16 07:00 15:00 23:00 07:00 15:00 23:00 Intake Total 1485 ml 840 ml 1055 ml Output Total 1650 ml 550 ml 1000 ml Balance -165 ml 290 ml 55 ml Intake Oral 960 ml 840 ml 540 ml IV Total 525 ml 515 ml Output Urine Total 1650 ml 550 ml 1000 ml # Voids 2 2 3 # Bowel Movements 1 0 0 Result Diagram: 12/05/16 0450 12/05/16 0450 Imaging Last Impressions Lower Extremity Ultrasound 12/04/16 0000 Signed Impressions: Service Date/Time: Sunday, December 04, 2016 12:42 - CONCLUSION: 1. No DVT identified. Ashok Gonzalez MD Lower Extremity CT 11/29/16 0000 Signed Impressions: Service Date/Time: Wednesday, November 30, 2016 05:19 - CONCLUSION: Evidence of multifocal hardware removal after hindfoot and midfoot arthrodesis. Medial greater than lateral hindfoot and mid foot soft tissues are indurated. Medial predominant multifocal bone cortical irregularity as above, some of which may be partly postsurgical but of concern for osteomyelitis of the talus, navicular, medial cuneiform and first metatarsal base in the proper clinical setting. Jose Tesfaye MD ADDENDUM: I don't see fracture or nonunion. Solid appearing bony bridging seen across the subtalar joint, the talonavicular and calcaneocuboid joints, the navicular/cuneiform and intercuneiform joints and en bloc bridging between the intermediate cuneiform, medial cuneiform and first and second metatarsal bases. Jose Tesfaye MD Foot X-Ray 11/28/16 0000 Signed Impressions: Service Date/Time: Monday, November 28, 2016 19:33 - CONCLUSION: Chronic change with a rounded metallic density seen over the lateral proximal mid foot. Jose Bolivra MD Objective Remarks GENERAL: Patient is a well-nourished, well-developed male sitting up eating breakfast. SKIN: Warm and dry. No rashes or ecchymoses noted. There is a postsurgical boot on the right leg up to the knee. Normal appearing PICC line noted in the proximal right arm. HEAD: Atraumatic. Normocephalic. EYES: Pupils equal and round. EOMI. No scleral icterus or conjunctival injection. ENT: No nasal bleeding or discharge. Mucous membranes pink and moist. NECK: Trachea midline. No JVD. CARDIOVASCULAR: Regular rate and rhythm. Patient is wearing defibrillator vest. Auscultation does not reveal any murmurs. No lower extremity edema. RESPIRATORY: No accessory muscle use. Clear to auscultation bilaterally without wheezes or rhonchi. Breath sounds equal bilaterally. GASTROINTESTINAL: Abdomen soft, non-tender, nondistended. Hepatic and splenic margins not palpable. Bowel sounds are normal in all 4 quadrants. MUSCULOSKELETAL: Left lower extremity has 2+ edema, pitting. Normal motor and strength functions. The right lower extremity is notable for warm toes with normal sensation distal to the boot, normal capillary refill bilaterally in the extremities. Able to wiggle toes in boot on right foot. Bears weight in boot without difficulty. NEUROLOGICAL: Awake and alert. No obvious cranial nerve deficits. Motor grossly within normal limits. 5/5 strength in the arms and legs. Normal gait. PSYCHIATRIC: Appropriate mood and affect; insight and judgment normal. Procedures Hardware removal right foot 11/28/[address] Solitario Urinary Catheter: No Vascular Central Line Catheter: No A/P Assessment and Plan 56-year-old male with a significant cardiac history including thyroid dysfunction, recurrent osteomyelitis of right foot, systolic heart failure with reduced EF 20-25% per report. He wears prescribed defibrillator vest. He was admitted 11/27/16 for scheduled hardware removal of the right foot with cultures pending. Surgery performed 11/28/16. Cultures negative, biopsy 03/02 showing osteomyelitis. He is medically clear for discharge 12/03. Discharge Planning Cleared from podiatry standpoint. Clear from infectious disease standpoint. He is to continue IV vancomycin infusions twice a day until clear. He will be seeing Dr. Snider (ID) after discharge Patient will also need to follow up with his trimmer operator and mixer whipped topping closely after discharge Discharge planning in progress per CM, and he will need his PCP to approve IV infusion prior to discharge. CM pending set up for IV vancomycin, home health, home PT Problem List: (1) Osteomyelitis of right foot ICD Codes: M86.9 - Osteomyelitis, unspecified Status: Acute Plan: Osteomyelitis/Infected Hardware Right Foot Hardware removal 11/28/16 Per ID, patient to continue IV antibiotics for 6 weeks. Discharge planning initiated. Tolerating PO pain medication well D/C'd as above Hospital course: * Patient does not meet SIRS or sepsis criteria based on intake labs and vital signs * Status post vancomycin x 6 weeks via home health nursing. 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 Features of acute osteomyelitis in distal aspect of medial column * Activity WBAT per podiatry, PT consulted * Records were requested from previous hospitalization, in paper chart (2) Infected hardware in right lower extremity ICD Codes: T84.7XXA - Infection and inflammatory reaction due to other internal orthopedic prosthetic devices, implants and grafts, initial encounter Status: Acute Plan: As above (3) Heart failure, systolic, chronic, etiology unknown ICD Codes: I50.22 - Chronic systolic (congestive) heart failure Status: Chronic Plan: CHF with reduced EF Compensated. Per patient was recently EF is 25%. He states it was as low as 10% back in May 2016. Cardiology consulted for medical clearance at admission. Caution with IV fluids given reportedly low EF. Outpatient trimmer operator is Dr. Btets * Asymptomatic * EKG on admission showing LV conduction delay * Patient is on anastrozole, unclear why patient will be on this medication, he states it is "for his cholesterol", will hold at this time. * Continue ROBB, BB, Lasix (4) CHF (congestive heart failure), NYHA class II ICD Codes: I50.9 - Heart failure, unspecified Status: Chronic Plan: As above (5) Leg swelling ICD Codes: M79.89 - Other specified soft tissue disorders Status: Acute Plan: Notes leg swelling on left side. Nontender, no erythema, good pulses. -US left leg ordered, negative DVT -On Eliquis 5mg daily at home, continued -Likely secondary to current sedentary situation (6) Atrial fibrillation, currently in sinus rhythm ICD Codes: Z86.79 - Personal history of other diseases of the circulatory system Status: Chronic Plan: Rate controlled. On Eliquis, temporarily held prior to procedure 11/28, place on telemetry. Eliquis restarted 12/02 (7) Thyroid disorder ICD Codes: E07.9 - Disorder of thyroid, unspecified Status: Chronic Plan: Unclear history from patient. Patient appears to be on levothyroxine, [place] Thyroid, and? Iodine though he is unsure. TSH is within normal limits--> restarted levothyroxine in hospital If patient has any acute symptoms suggesting thyroid dysfunction is active, will reassess. Patient is a follows PCP to reconcile medications for thyroid disorder. (8) Fluids/Electrolytes/Nutrition/Prophylaxis Status: Acute Plan: PRN Medications Vasotec 1.25mg for BP >180/110 Stool softeners and other constipation medications order per protocol Fluids/Electrolytes/Nutrition/Prophylaxis Fluids: tolerating PO Electrolytes: monitor and replete as needed Nutrition: Heart healthy diet DVT Prophylaxis: Early ambulation. On Plavix at home, restarted 12/02. SCDs on LLE while immobile. GI Prophylaxis: None indicated at this time Trista Martinez MD R2 Dec 05, 2016 09:44
--- NOTE | 2016-12-05 11:24 | HHI.DS ---
Discharge Summary Admission Date Nov 27, 2016 at 13:43 Discharge Date: Dec 05, 2016 Admitting Diagnosis (1) Osteomyelitis of right foot Diagnosis: Principal Plan: Osteomyelitis/Infected Hardware Right Foot Hardware removal 11/28/16 Per ID, patient to continue IV antibiotics for 6 weeks. Discharge planning initiated. Tolerating PO pain medication well D/C'd as above Hospital course: * Patient does not meet SIRS or sepsis criteria based on intake labs and vital signs * Status post vancomycin x 6 weeks via home health nursing. 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 Features of acute osteomyelitis in distal aspect of medial column * Activity WBAT per podiatry, PT consulted * Records were requested from previous hospitalization, in paper chart ICD Codes: M86.9 - Osteomyelitis, unspecified Status: Acute (2) Infected hardware in right lower extremity Diagnosis: Principal Plan: As above ICD Codes: T84.7XXA - Infection and inflammatory reaction due to other internal orthopedic prosthetic devices, implants and grafts, initial encounter Status: Acute (3) Heart failure, systolic, chronic, etiology unknown Diagnosis: Secondary Plan: CHF with reduced EF Compensated. Per patient was recently EF is 25%. He states it was as low as 10% back in May 2016. Cardiology consulted for medical clearance at admission. Caution with IV fluids given reportedly low EF. Outpatient network specialist is Dr. Betts * Asymptomatic * EKG on admission showing LV conduction delay * Patient is on anastrozole, unclear why patient will be on this medication, he states it is "for his cholesterol", will hold at this time. * Continue ROBB, BB, Lasix ICD Codes: I50.22 - Chronic systolic (congestive) heart failure Status: Chronic (4) CHF (congestive heart failure), NYHA class II Diagnosis: Secondary Plan: As above ICD Codes: I50.9 - Heart failure, unspecified Status: Chronic (5) Leg swelling Diagnosis: Secondary Plan: Notes leg swelling on left side. Nontender, no erythema, good pulses. -US left leg ordered, negative DVT -On Eliquis 5mg daily at home, continued -Likely secondary to current sedentary situation ICD Codes: M79.89 - Other specified soft tissue disorders Status: Acute (6) Atrial fibrillation, currently in sinus rhythm Diagnosis: Secondary Plan: Rate controlled. On Eliquis, temporarily held prior to procedure 11/28, place on telemetry. Eliquis restarted 12/02 ICD Codes: Z86.79 - Personal history of other diseases of the circulatory system Status: Chronic (7) Thyroid disorder Diagnosis: Secondary Plan: Unclear history from patient. Patient appears to be on levothyroxine, [place] Thyroid, and? Iodine though he is unsure. TSH is within normal limits--> restarted levothyroxine in hospital If patient has any acute symptoms suggesting thyroid dysfunction is active, will reassess. Patient is a follows PCP to reconcile medications for thyroid disorder. ICD Codes: E07.9 - Disorder of thyroid, unspecified Status: Chronic (8) Fluids/Electrolytes/Nutrition/Prophylaxis Diagnosis: Secondary Plan: PRN Medications Vasotec 1.25mg for BP >180/110 Stool softeners and other constipation medications order per protocol Fluids/Electrolytes/Nutrition/Prophylaxis Fluids: tolerating PO Electrolytes: monitor and replete as needed Nutrition: Heart healthy diet DVT Prophylaxis: Early ambulation. On Plavix at home, restarted 12/02. SCDs on LLE while immobile. GI Prophylaxis: None indicated at this time Status: Acute Consultants Podiatry Infectious Diseases Procedures Hardware removal right foot 11/28/[address] Solitario Brief History Patient is a 56 year old male with history of systolic HF, EF 20-25 with defibrillator vest, who presents because he was sent by his tablet repair for surgical removal of right foot hardware. He did not bring any records with him but says he was sent by Dr. Solitario for surgery tomorrow. Patient states his issue with the right foot started after construction accident in 2007. He had no issues with the hardware which he reports to be extensive involving the forefoot, medial foot, and ankle. He is noted to have had osteomyelitis in [place] in May 2014, with hardware removed at that time. After controlling infection, hardware was replaced in October 2014. Repair included bone graft, removal of old hardware, and delayed replacement of new hardware. Patient did have a hospitalization in May 2016: new infection of the foot, lower extremity edema, cardiac issues at that time, diagnosed with new-onset CHF per his report. Now sees Dr. Whittaker through [facility]. Last EF 20-25% 3 months ago. He has seen another doctor for AICD placement, but there is suspicion that infection may be contributing to low EF. Recently (within 1-2 months), he noticed increased pain in the right foot. He noticed at that time redness and swelling, was sent to [facility] and he had debridement by Dr. Solitario. The review included sending one of the screws for culture and infection, per patient was MRSA, was noted. He was diagnosed then with recurrent osteomyelitis and has been on IV vancomycin BID via home health infusions. He notes that he ran out of vancomycin as of this morning. Symptom-montaño, patient states he is at a baseline. He is ambulating without balance issues and only notes some pain with ambulation. He denies any systemic signs of fever. He does endorse lower extremity edema which is mildly increased above his baseline; his edema has been a problem since his hospitalization in May 2016, and he did take his Lasix 40 mg doses morning for this. He denies respiratory symptoms today and states he does not usually have respiratory symptoms. CBC/BMP: 12/05/16 0450 12/05/16 0450 Significant Findings Laboratory Tests Test 12/03/16 05:05 12/04/16 06:35 12/05/16 04:50 Red Blood Count 3.93 MIL/MM3 (4.50-5.90) 4.09 MIL/MM3 (4.50-5.90) 4.01 MIL/MM3 (4.50-5.90) Hemoglobin 12.5 GM/DL (13.0-17.0) 12.9 GM/DL (13.0-17.0) 12.7 GM/DL (13.0-17.0) Hematocrit 37.8 % (39.0-51.0) 38.8 % (39.0-51.0) Red Cell Distribution Width 19.7 % (11.6-17.2) 19.4 % (11.6-17.2) 19.5 % (11.6-17.2) Monocytes (%) (Auto) 14.3 % (0.0-8.0) 14.9 % (0.0-8.0) Random Glucose 71 MG/DL (74-106) 72 MG/DL (74-106) 71 MG/DL (74-106) Calcium Level 7.8 MG/DL (8.5-10.1) 8.4 MG/DL (8.5-10.1) Estimat Glomerular Filtration Rate 77 ML/MIN (>89) 76 ML/MIN (>89) 68 ML/MIN (>89) Potassium Level 3.4 MEQ/L (3.5-5.1) Sodium Level 135 MEQ/L (136-145) Imaging Last Impressions Lower Extremity Ultrasound 12/04/16 Signed Impressions: Service Date/Time: Sunday, December 04, 2016 12:42 - CONCLUSION: 1. No DVT identified. Ashok Gonzalez MD Lower Extremity CT 11/29/16 Signed Impressions: Service Date/Time: Wednesday, November 30, 2016 05:19 - CONCLUSION: Evidence of multifocal hardware removal after hindfoot and midfoot arthrodesis. Medial greater than lateral hindfoot and mid foot soft tissues are indurated. Medial predominant multifocal bone cortical irregularity as above, some of which may be partly postsurgical but of concern for osteomyelitis of the talus, navicular, medial cuneiform and first metatarsal base in the proper clinical setting. Jose Tesfaye MD ADDENDUM: I don't see fracture or nonunion. Solid appearing bony bridging seen across the subtalar joint, the talonavicular and calcaneocuboid joints, the navicular/cuneiform and intercuneiform joints and en bloc bridging between the intermediate cuneiform, medial cuneiform and first and second metatarsal bases. Jose Tesfaye MD Foot X-Ray 11/28/16 Signed Impressions: Service Date/Time: Monday, November 28, 2016 19:33 - CONCLUSION: Chronic change with a rounded metallic density seen over the lateral proximal mid foot. Jose Bolivar MD PE at Discharge GENERAL: Patient is a well-nourished, well-developed male sitting up eating breakfast. SKIN: Warm and dry. No rashes or ecchymoses noted. There is a postsurgical boot on the right leg up to the knee. Normal appearing PICC line noted in the proximal right arm. HEAD: Atraumatic. Normocephalic. EYES: Pupils equal and round. EOMI. No scleral icterus or conjunctival injection. ENT: No nasal bleeding or discharge. Mucous membranes pink and moist. NECK: Trachea midline. No JVD. CARDIOVASCULAR: Regular rate and rhythm. Patient is wearing defibrillator vest. Auscultation does not reveal any murmurs. No lower extremity edema. RESPIRATORY: No accessory muscle use. Clear to auscultation bilaterally without wheezes or rhonchi. Breath sounds equal bilaterally. GASTROINTESTINAL: Abdomen soft, non-tender, nondistended. Hepatic and splenic margins not palpable. Bowel sounds are normal in all 4 quadrants. MUSCULOSKELETAL: Left lower extremity has 2+ edema, pitting. Normal motor and strength functions. The right lower extremity is notable for warm toes with normal sensation distal to the boot, normal capillary refill bilaterally in the extremities. Able to wiggle toes in boot on right foot. Bears weight in boot without difficulty. NEUROLOGICAL: Awake and alert. No obvious cranial nerve deficits. Motor grossly within normal limits. 5/5 strength in the arms and legs. Normal gait. PSYCHIATRIC: Appropriate mood and affect; insight and judgment normal. Hospital Course Patient was admitted per Dr. Solitario for scheduled hardware removal. He has a long history of hardware-related infections and is s/p ~6 weeks Vancomycin infusions at home. He also has hx DVT. Cardiology was consulted for clearance given hx congestive heart failure with reduced EF 10-15%, was cleared, could not have general anesthesia. Cultures and biopsies were followed post-operatively, notable to have negative cultures and osteomyelitis on one distal biopsy site. Pain control included PAIN COORDINATOR Dilaudid for 2 days, transitioned to PO Percocet without complications. US left LE performed 12/04 due to LE swelling, negative for DVT. Eliquis was restarted after procedure. Podiatry (Dr. Solitario) cleared patient for weightbearing in surgical boot shortly after procedure, which patient tolerated well. Infectious Disease was consulted, recommended continuing IV Vancomycin for 6 more weeks with ID followup as outpatient. Pt stable and cleared for discharge on 12/03. Discharge delayed per CM due to inability to set up home vancomycin infusions through his insurance provider/ PCP until 12/05. He will also have home PT. Patient understands he will follow up with PCP, Podiatry, Cardiology, and ID as outpt. All questions were answered. Pt Condition on Discharge: Stable Discharge Disposition: Disch w/ Home Health Serv Discharge Instructions DIET: Follow Instructions for: Heart Healthy Diet Activities you can perform: Weight Bearing as Chris Activities to Avoid: Contact Sports, Lifting/Bending, Prolonged Standing, Strenuous Activity, Driving Follow up Referrals: Cardiology - 1 Week Podiatry with Dominic Solitario DPM New Medications: Oxycodone-Acetaminophen (Oxycodone-Acetaminophen) 10-325 mg Tab 1 TAB PO Q4-6H, #30 TAB Continued Medications: Apixaban (Eliquis) 5 Mg Tab 5 MG PO BID for Blood Clot Prevention, TAB 0 Refills Carvedilol (Carvedilol) 3.125 Mg Tab 3.125 MG PO BID, TAB 0 Refills Cholecalciferol (Vitamin D3) 1,000 Unit Cap 400 UNITS PO DAILY for Nutritional Supplement, BOTTLE 0 Refills Coenzyme Q10 (Ubidecarenone) (Coq-10) 400 Mg Cap 200 MG PO DAILY Furosemide (Furosemide) 40 Mg Tab 40 MG PO BID, TAB 0 Refills Levothyroxine (Levothyroxine) 50 Mcg Tab 50 MCG PO DAILY for Thyroid, TAB 0 Refills Lisinopril (Lisinopril) 5 Mg Tab 5 MG PO DAILY for Blood Pressure Management, TAB 0 Refills Multiple Vitamin (Multiple Vitamin) 1 Tab 1 TAB PO DAILY for Nutritional Supplement, TAB 0 Refills Potassium Iodide (Antidote) (Iosat (Antidote)) 130 Mg Tab 0.5 MG PO DAILY, TAB 0 Refills Tadalafil (Cialis) 5 Mg Tab 5 MG PO DAILY, TAB 0 Refills Do not exceed 1 dose/day. Thyroid ([place] Thyroid) 30 Mg Tab 30 MG PO DAILY for Thyroid Supplement, TAB 0 Refills Vitamin A Palmitate (Vitamin A) 10,000 Unit Capsule 1 TAB PO DAILY Vitamin E (Vitamin E) 100 Unit Tab 400 UNITS PO DAILY for Nutritional Supplement, TAB 0 Refills Discontinued Medications: Anastrozole (Anastrozole) 1 Mg Tab 0.5 MG PO DAILY for Breast Cancer, TAB 0 Refills Hydrocodone-Acetaminophen (Hydrocodone-Acetaminophen) 10-325 mg Tab 1 TAB PO Q4H PRN for PAIN, TAB 0 Refills Sulfamethoxazole-Trimethoprim (Bactrim DS) 800-160 Mg Tab 1 TAB PO BID for Infection, TAB 0 Refills Vancomycin Inj (Vancomycin Inj) 1 Gram Inj 1250 MG IV Q12HR for Infection, BAG 0 Refills Trista Martinez MD R2 Dec 05, 2016 11:24
[2016-12-05 12:02] VITALS: BP 121/88; PULSE 101; RESP 18; TEMP 97.4; O2SAT 98
[2016-12-06] MEDS ORDERED: PHARMACY ORDERED LAB ONE (03:45)
== END 2016-12-05 15:20 | disposition home health service (06) | DRG 940 ==
LOC: NEPC 10:08 → NEDA 13:43 → HCIN 16:27 → N04A 11-30 21:32
PROVIDERS: ADMIT Family Medicine; ATTEND Family Medicine
PROC: 0QBN0ZX Excision of Right Metatarsal, Open Approach, Diagnostic (ICD-10-PCS; 2016-11-28)
PROC: 0SPH04Z Removal of Internal Fixation Device from Right Tarsal Joint, Open Approach (ICD-10-PCS; 2016-11-28)
PROC: 0QBL0ZX Excision of Right Tarsal, Open Approach, Diagnostic (ICD-10-PCS; 2016-11-28)
PROC: 0QPN04Z Removal of Internal Fixation Device from Right Metatarsal, Open Approach (ICD-10-PCS; principal; 2016-11-28 17:03)
DX: T84.69XD Infection and inflammatory reaction due to internal fixation device of other site, subsequent encounter (principal); I50.22 Chronic systolic (congestive) heart failure; I42.9 Cardiomyopathy, unspecified; M86.171 Other acute osteomyelitis, right ankle and foot; M87.9 Osteonecrosis, unspecified; I48.91 Unspecified atrial fibrillation; Z79.02 Long term (current) use of antithrombotics/antiplatelets; Z87.891 Personal history of nicotine dependence; E07.9 Disorder of thyroid, unspecified; E16.2 Hypoglycemia, unspecified
CPT/HCPCS: 73620; 73630; 73700; 76000; 80048; 80053; 80202; 83735; 84100; 84439; 84443; 84480; 85025; 85027; 85610; 85652; 86140; 87015; 87040; 87070; 87102; 87116; 87205; 87206; 88307; 88311; 93005; 93971; J0131; J0171; J0461; J1170; J1580; J1940; J2060; J2250; J2270; J3370; J7040; L2114